=== PATIENT | male | born 1995 | race Caucasian/White ===

== ENCOUNTER 2016-12-28 12:29 | Inpatient (IN) | payer OTHER ==
[~2016-12-28] VITALS: Ht 165.1 cm; Wt 65.0 kg
[2016-12-28] MEDS ORDERED: LORAZEPAM 1 MG TAB PO ONE (13:00)
[2016-12-28 13:32] LABS: ABNORMAL IP MESSAGE 1; HEMATOCRIT 45.7 % (42.0-52.0); HEMOGLOBIN 16.5 g/dl (14.0-18.0); MEAN CORPUSCULAR HEMOGLOBIN 29.1 pg (29.0-33.0); MEAN CORPUSCULAR HGB CONC 36.1 g/dl (32.0-37.0); MEAN CORPUSCULAR VOLUME 80.6 fl (82.0-101.0); POSITIVE DIFF @See below; RED BLOOD COUNT 5.67 10^6/ul (4.70-6.10); RED CELL DISTRIBUTION WIDTH 12.3 % (11.5-14.5); WHITE BLOOD COUNT 7.8 10^3/ul (4.8-10.8)
[2016-12-28 13:39] LABS: PLATELET COUNT 6 10^3/UL (140-415)
[2016-12-28 13:43] LABS: ACETAMINOPHEN < 10.0 ug/ml (10.0-30.0); ALANINE AMINOTRANSFERASE 34 IU/L (13-69); ALBUMIN/GLOBULIN RATIO 1.61; ALKALINE PHOSPHATASE 51 IU/L (42-121); ANION GAP 18 (8-16); ASPARTATE AMINO TRANSFERASE 24 IU/L (15-46); BILIRUBIN,INDIRECT 1.7 mg/dl (0-1.1); BILIRUBIN,TOTAL 1.7 mg/dl (0.2-1.3); BLOOD UREA NITROGEN 19 mg/dl (7-20); CALCIUM 9.7 mg/dl (8.4-10.2); CARBON DIOXIDE 27 mmol/L (21-31); CHLORIDE 103 mmol/L (97-110); CREATININE 0.95 mg/dl (0.61-1.24); ETHANOL < 10.0 mg/dl; GLUCOSE 109 mg/dl (70-220); POTASSIUM 3.6 mmol/L (3.5-5.1); SALICYLATE < 1.0 mg/dl (5.0-30.0); SODIUM 144 mmol/L (135-144); TOTAL PROTEIN 8.1 g/dl (6.1-8.1)
[2016-12-28 14:05] LABS: ANISOCYTOSIS 1+ (0-0); BASOPHILS % (M) 1 % (0-2); MICROCYTOSIS 1+ (0-0); MONOCYTES % (M) 11 % (0-11); PLATELET ESTIMATE SIG DECREASED
--- NOTE | 2016-12-28 14:14 | ERD ---
ER Documentation Chief Complaint Chief Complaint BIBA FOR DEPRESSION AND METH USE HPI Patient is a 21-year-old male with thrombocytopenia and previous ITP who presents with depression. Patient was brought in by ambulance. He says "I am not feeling safe". He does admit to using methamphetamines this morning and said that another person was with him saying "you are going to go to God". He said that there was something in my brain telling me "something was wrong". He feels sad and depressed and has suicidal ideation. He does not have a plan however. He does not currently have a primary doctor or a psychiatric doctor. He has had no treatment as of yet. ROS All systems reviewed and are negative except as per history of present illness. PMhx/Soc History of Surgery: No (Bone marrow biopsy) Anesthesia Reaction: No Hx Neurological Disorder: No Hx Respiratory Disorders: No Hx Cardiac Disorders: No Hx Psychiatric Problems: Yes Hx Miscellaneous Medical Probl: No Hx Alcohol Use: Yes Hx Substance Use: Yes Hx Tobacco Use: Yes Smoking Status: Current every day smoker FmHx Family History: No diabetes Physical Exam Vitals Vital Signs Date Time Temp Pulse Resp B/P Pulse Ox O2 Delivery O2 Flow Rate FiO2 12/28/16 12:40 98.1 88 18 170/113 98 Physical Exam Const: Moderate distress Head: Atraumatic Eyes: Normal Conjunctiva ENT: Normal External Ears, Nose and Mouth. Neck: Full range of motion..~ No meningismus. Resp: Clear to auscultation bilaterally Cardio: Regular rate and rhythm, no murmurs Abd: Soft, non tender, non distended. Normal bowel sounds Skin: No petechiae or rashes Back: No midline or flank tenderness Ext: No cyanosis, or edema Neur: Awake and depressed Psych: Depressed with suicidal ideation without plan Result Diagram: 12/28/16 1300 12/28/16 1300 Results 24 hrs Laboratory Tests Test 12/28/16 13:00 White Blood Count 7.810^3/ul Red Blood Count 5.6710^6/ul Hemoglobin 16.5g/dl Hematocrit 45.7% Mean Corpuscular Volume 80.6fl Mean Corpuscular Hemoglobin 29.1pg Mean Corpuscular Hemoglobin Concent 36.1g/dl Red Cell Distribution Width 12.3% Platelet Count 610^3/UL Mean Platelet Volume fl Neutrophils % % Segmented Neutrophils % (Manual) 59% Band Neutrophils % (Manual) 3% Lymphocytes % % Lymphocytes % (Manual) 26% Monocytes % % Monocytes % (Manual) 11% Eosinophils % % Basophils % % Basophils % (Manual) 1% Nucleated Red Blood Cells % 0.0/100WBC Neutrophils # 10^3/ul Neutrophils # (Manual) 4.610^3/ul Band Neutrophils # 0.210^3/ul Absolute Lymphocytes (Manual) 2.010^3/ul Lymphocytes # 10^3/ul Monocytes # 10^3/ul Absolute Monocytes (Manual) 0.810^3/ul Eosinophils # 10^3/ul Basophils # 10^3/ul Basophils # (Manual) 0.010^3/ul Nucleated Red Blood Cells # 10^3/ul Platelet Estimate SIG DECREASED Platelet Morphology Comment @See below Anisocytosis 1+ Microcytosis 1+ Sodium Level 144mmol/L Potassium Level 3.6mmol/L Chloride Level 103mmol/L Carbon Dioxide Level 27mmol/L Anion Gap 18 Blood Urea Nitrogen 19mg/dl Creatinine 0.95mg/dl Glucose Level 109mg/dl Calcium Level 9.7mg/dl Total Bilirubin 1.7mg/dl Direct Bilirubin 0.00mg/dl Indirect Bilirubin 1.7mg/dl Aspartate Amino Transf (AST/SGOT) 24IU/L Alanine Aminotransferase (ALT/SGPT) 34IU/L Alkaline Phosphatase 51IU/L Total Protein 8.1g/dl Albumin 5.0g/dl Globulin 3.10g/dl Albumin/Globulin Ratio 1.61 Salicylates Level < 1.0mg/dl Acetaminophen Level < 10.0ug/ml Ethyl Alcohol Level < 10.0mg/dl Current Medications Medications (Trade) Dose Ordered Sig/Evette Route PRN Reason Start Time Stop Time Status Last Admin Dose Admin Lorazepam (Ativan) 1 mg ONCE ONCE PO 12/28/16 13:00 12/28/16 13:01 DC Procedures/MDM Smoking Cessation Therapy: Pt. was lectured for greater than 3 minutes on the health risks of continued smoking and the benefits of cessation. Patient is a 21-year-old male with a history of ITP who presents with depression and methamphetamine abuse. The patient unfortunately was found to have significantly low platelet count as well with a platelet level of 6. I believe he has acute thrombocytopenia likely ITP. The patient will not be medically clear for psychiatric transfer at this time. He was given Ativan for his symptoms. He will be admitted to the care of Dr. Kearney as he has [facility] insurance. I believe the patient can be admitted to a medical surgical bed. A psychiatry evaluation was ordered and I am awaiting a psychiatric evaluation at this time to give guidance on medications while admitted to the hospital. Urine drug screen is also pending at this time. Departure Diagnosis: Primary Impression: Thrombocytopenia Additional Impression: Depression Depression Type: unspecified Qualified Code: F32.9 - Depression, unspecified depression type Condition: AUREA Ibrahim MD Dec 28, 2016 14:14
[2016-12-28] MEDS ORDERED: METHYLPREDNISOLONE 125 MG INJ IV ONE ×2 (14:30→21:00)
[2016-12-28] MEDS ORDERED: ONDANSETRON 4 MG INJ IV PRN ×2 (15:00→16:30)
[2016-12-28] MEDS ORDERED: ACETAMINOPHEN 325 MG TAB PO PRN ×2 (15:00→16:30)
[2016-12-28 15:57] VITALS: TEMP 97.9
--- NOTE | 2016-12-28 16:05 | QN ---
Documentation Comment h and p done [id number]# BENJAMIN STOUT MD Dec 28, 2016 16:05
[2016-12-28] MEDS ORDERED: HYDROCODONE/APAP (5/325) TAB PO PRN (16:30)
[2016-12-28] MEDS ORDERED: DOCUSATE SODIUM 100 MG CAP PO PRN (16:30)
[2016-12-28] MEDS ORDERED: IBUPROFEN 600 MG TAB PO PRN (16:30)
[2016-12-28] MEDS ORDERED: NACL 0.9% 3 ML SYG IV SCH (16:30)
[2016-12-28] MEDS ORDERED: METOCLOPRAMIDE 10 MG INJ IV PRN (16:30)
[2016-12-28] MEDS ORDERED: LORAZEPAM 2 MG INJ IV PRN (16:30)
[2016-12-28] MEDS ORDERED: morphine 2 MG INJ IV PRN (16:30)
[2016-12-28 16:48] LABS: ADD UMIC YES; UR ASCORBIC ACID NEGATIVE (NEGATIVE); UR BILIRUBIN (Dip) NEGATIVE (NEGATIVE); UR BLOOD (Dip) NEGATIVE (NEGATIVE); UR CLARITY SLIGHTLY CLOUDY (CLEAR); UR COLOR YELLOW (YELLOW); UR GLUCOSE (Dip) NEGATIVE (NEGATIVE); UR KETONES (Dip) 1+ mg/dL (NEGATIVE); UR LEUKOCYTE ESTERASE (Dip) 1+ Leu/ul (NEGATIVE); UR MUCUS MANY /HPF (NONE SEEN); UR NITRITE (Dip) NEGATIVE (NEGATIVE); UR RBC 4 /HPF (0-5); UR SPECIFIC GRAVITY (Dip) 1.029 (1.003-1.030); UR SQUAMOUS EPITHELIAL CELL FEW /HPF (FEW); UR TOTAL PROTEIN (Dip) NEGATIVE (NEGATIVE); UR UROBILINOGEN (Dip) 1+ mg/dL (NEGATIVE)
--- NOTE | 2016-12-28 16:50 | CONS ---
Date/Time of Note Date/Time of Note DATE: 12/28/16 TIME: 16:41 Assessment/Plan Assessment/Plan Chief Complaint/Hosp Course THROMBOCYTOPENIA history of ITP CHECK SMEAR, LDH, RETIC, FRACTIONATED BILI OBTAIN OLD RECORD IF POS CHECK HIV START STEROIDS IV D/W PRIMARY MICROCYTOSIS CHECK IRON STUDIES depression methamphetamine abuse. Problems: Consultation Date/Type/Reason Admit Date/Time 12/28/16 Date of Consultation: Dec 28, 2016 Type of Consultation: hemeonc Reason for Consultation thrombocytopenia Referring Provider: KAM URENA MD Hx of Present Illness Patient is a 21-year-old male with thrombocytopenia and previous ITP who presents with depression. Patient was brought in by ambulance. He says "I am not feeling safe". He does admit to using methamphetamines this morning and said that another person was with him saying "you are going to go to God". He said that there was something in my brain telling me "something was wrong". He feels sad and depressed and has suicidal ideation. He does not have a plan however. He does not currently have a primary doctor or a psychiatric doctor. He has had no treatment as of yet. i was asked to provide hemeonc consult re thrombocytopenia ROS All systems reviewed and are negative except as per history of present illness. PMhx/Soc History of Surgery: No (Bone marrow biopsy) Anesthesia Reaction: No Hx Neurological Disorder: No Hx Respiratory Disorders: No Hx Cardiac Disorders: No Hx Psychiatric Problems: Yes Hx Miscellaneous Medical Probl: No Hx Alcohol Use: Yes Hx Substance Use: Yes Hx Tobacco Use: Yes Smoking Status: Current every day smoker FmHx Family History: No diabetes Social History Smoking Status: Current every day smoker Exam/Review of Systems Vital Signs Vitals Vital Signs Date Time Temp Pulse Resp B/P Pulse Ox O2 Delivery O2 Flow Rate FiO2 12/28/16 15:57 97.9 91 17 139/86 100 Room Air Exam Const: Moderate distress Head: Atraumatic Eyes: Normal Conjunctiva ENT: Normal External Ears, Nose and Mouth. Neck: Full range of motion..~ No meningismus. Resp: Clear to auscultation bilaterally Cardio: Regular rate and rhythm, no murmurs Abd: Soft, non tender, non distended. Normal bowel sounds Skin: No petechiae or rashes Back: No midline or flank tenderness Ext: No cyanosis, or edema Neur: Awake and depressed Psych: Depressed with suicidal ideation without plan Results Result Diagram: 12/28/16 1300 12/28/16 1300 Results 24 hrs Laboratory Tests Test 12/28/16 13:00 White Blood Count 7.8 Red Blood Count 5.67 Hemoglobin 16.5 Hematocrit 45.7 Mean Corpuscular Volume 80.6 L Mean Corpuscular Hemoglobin 29.1 Mean Corpuscular Hemoglobin Concent 36.1 Red Cell Distribution Width 12.3 Platelet Count 6 *L Mean Platelet Volume Neutrophils % Segmented Neutrophils % (Manual) 59 Band Neutrophils % (Manual) 3 Lymphocytes % Lymphocytes % (Manual) 26 Monocytes % Monocytes % (Manual) 11 Eosinophils % Basophils % Basophils % (Manual) 1 Nucleated Red Blood Cells % 0.0 Neutrophils # Neutrophils # (Manual) 4.6 Band Neutrophils # 0.2 Absolute Lymphocytes (Manual) 2.0 Lymphocytes # Monocytes # Absolute Monocytes (Manual) 0.8 Eosinophils # Basophils # Basophils # (Manual) 0.0 Nucleated Red Blood Cells # Platelet Estimate SIG DECREASED Platelet Morphology Comment @See below Anisocytosis 1+ Microcytosis 1+ Absolute Reticulocyte Count 0.058 Percent Reticulocyte Count 1.0 Sodium Level 144 Potassium Level 3.6 Chloride Level 103 Carbon Dioxide Level 27 Anion Gap 18 H Blood Urea Nitrogen 19 Creatinine 0.95 Glucose Level 109 Calcium Level 9.7 Total Bilirubin 1.7 H Direct Bilirubin 0.00 Indirect Bilirubin 1.7 H Aspartate Amino Transf (AST/SGOT) 24 Alanine Aminotransferase (ALT/SGPT) 34 Alkaline Phosphatase 51 Total Protein 8.1 Albumin 5.0 H Globulin 3.10 Albumin/Globulin Ratio 1.61 Salicylates Level < 1.0 L Acetaminophen Level < 10.0 L Ethyl Alcohol Level < 10.0 Medications Medications Current Medications Methylprednisolone Sodium Succinate 80 mg 80 mg TID ONCE IV ; Start 12/28/16 at 21:00; Stop 12/28/16 at 21:01 Sodium Chloride (NS) 1,000 ml @ 70 mls/hr [id number] IV ; Start 12/28/16 at 16:05 ; Status UNV Ondansetron HCl (Zofran Inj) 4 mg Q6H PRN IV NAUSEA AND/OR VOMITING; Start at 16:30; Status UNV Metoclopramide HCl (Reglan) 10 mg Q6H PRN IV NAUSEA AND/OR VOMITING; Start at 16:30; Status UNV Acetaminophen (Tylenol Tab) 650 mg Q6H PRN PO PAIN LEVEL 1-3 OR FEVER; Start 12/28/16 at 16:30; Status UNV Ibuprofen (Motrin) 600 mg Q6H PRN PO PAIN LEVEL 1-3; Start 12/28/16 at 16:30; Status UNV Acetaminophen/ Hydrocodone Bitart ([place] (5/325)) 1 tab Q6H PRN PO MODERATE PAIN LEVEL 4-6; Start 12/28/16 at 16:30; Status UNV Morphine Sulfate (morphine) 2 mg Q4H PRN IV SEVERE PAIN LEVEL 7-10; Start at 16:30; Status UNV Docusate Sodium (Colace) 100 mg Q12H PRN PO CONSTIPATION; Start 12/28/16 at 16 :30; Status UNV Famotidine (Pepcid Iv) 20 mg Q12 IV ; Start 12/28/16 at 21:00; Status UNV Miscellaneous Information (* Miscellaneous Pharmacy Order) Discontinue current oral sulfonylur... ONCE ONCE XX ; Start 12/28/16 at 16:30; Stop 12/28/16 at 16:31; Status UNV Diagnostic Test (Pha) (Accu-Chek) 1 XX ; Start 12/29/16 at 02:00; Status UNV Miscellaneous Information (* Miscellaneous Pharmacy Order) HYPOGLYCEMIA PROTOCOL w... ONCE ONCE XX ; Start 12/28/16 at 16:30; Stop 12/28/16 at 16:31 ; Status UNV Insulin Aspart (Novolog Insulin Pen) NOVOLOG *MILD* ALGORI... Q4 SC ; Start at 17:00; Status UNV Insulin Aspart (Novolog Insulin Pen) NOVOLOG *MODERATE* ALGORI... Q4 SC ; Start 12/28/16 at 17:00; Status UNV Miscellaneous Information (* Miscellaneous Pharmacy Order) Discontinue all previ... ONCE ONCE XX ; Start 12/28/16 at 16:30; Stop 12/28/16 at 16:31; Status UNV Lorazepam 1 mg 1 mg Q4 PRN IV agitation; Start 12/28/16 at 16:30; Status UNV Multivitamins/ Thiamine HCl/ Folic Acid/Sodium Chloride (Mvi Adult/ Vitamin B1/ Folic Acid/NS) 1,011.2 ml @ 125 mls/ hr DAILY@09 IVPB ; Start 12/29/16 at 09: 00; Status UNV SCAR FICSHER MD Dec 28, 2016 16:50
[2016-12-28 16:53] VITALS: BP 132/61; RESP 18
[2016-12-28 16:58] VITALS: Ht 165.1 cm; Wt 65.0 kg
[2016-12-28 16:59] LABS: BARBITURATES Negative (NEGATIVE); BENZODIAZEPINES Negative (NEGATIVE); CANNABINOIDS Positive (NEGATIVE); COCAINE Negative (NEGATIVE); OPIATES Negative (NEGATIVE)
[2016-12-28] MEDS ORDERED: GLUCOSE GEL 15 GRAM TUBE PO PRN ×2 (17:00)
[2016-12-28] MEDS ORDERED: INSULIN ASPART [NOVOLOG] 3 ML PEN SC SCH ×5 (17:00→21:00)
[2016-12-28] MEDS ORDERED: DEXTROSE 50% 50 ML SYRINGE IV PRN ×2 (17:00)
[2016-12-28] MEDS ORDERED: GLUCAGON 1 MG INJ IM PRN (17:00)
[2016-12-28] MEDS ORDERED: GLUCOSE GEL 15 GRAM TUBE BUCCAL PRN (17:00)
--- NOTE | 2016-12-28 17:23 | HP ---
DATE OF ADMISSION: 12/28/2016 REASON FOR ADMISSION: Low platelet count. HISTORY OF PRESENT ILLNESS: This is a 21-year-old male with a past medical history of ITP since a c hild, presented to the emergency department after he was brought in the ambulance as he says "I'm n ot feeling safe". According to the patient, he had ITP when he was a child. He had a bone marrow b iopsy that was performed. Since that time, he had been intermittently in and out of the hospitals. He used to stay in the hospital for a few days and then used to get discharged, but he never took a ny complete treatment. According to the patient, his last hospitalization for ITP was 2 days ago wh ere he presented with nose bleeding. Patient said that he has been depressed for quite some time an d as he is homeless and he does not have a job he has been using methamphetamines and marijuana. La st night he used methamphetamine and he was not feeling safe and he said that another person was tel ling him you are going to God and that there was something in my brain telling him something was wro ng and was brought into the ER. According to the sister, who is present at the bedside, the patient was living with her before 3 months ago, but since he has not been earning, she is not able to keep him at home. She has told him to go to either his father or his mother for her, but he would not g o. The patient has been having some intermittent gum bleeds. Denies any nosebleeds. Denies any he maturia, any hematemesis, any melena, any bright red blood per rectum. Does not take any blood thin ners. On arrival to ED, vital signs were temperature 98.1, heart rate 88, respirations 18, blood pr essure is 171/113, saturating 98%, platelet count was 6 and BMP showed BUN of 19, creatinine 0.95, t otal bilirubin of 1.7, and ETOH level was less than 10. Patient was given Ativan, Solu-Medrol 125, Zofran, acetaminophen, and was admitted for further management. PAST MEDICAL HISTORY: ITP. ALLERGIES: None. PAST SURGICAL HISTORY: None. SOCIAL HISTORY: He is a smoker and smokes 1 to 2 cigarettes per day. Also, drinks alcohol. Also, uses marijuana and amphetamine. Last use was last night. Currently, he is homeless, is unemployed, used to live with his sister before. FAMILY HISTORY: No history of any blood disorder in the family. REVIEW OF SYSTEMS: Patient generally denies any chest pain, any shortness of breath, orthopnea, PND , any lower extremity edema. Denies any abdominal pain, nausea, vomiting, diarrhea. Denies any hem atemesis, any melena, any bright blood per rectum. The patient is apparently depressed with suicida l ideation without plan. PHYSICAL EXAMINATION: VITAL SIGNS: Temperature 98.1, heart rate 88, respirations 18, blood pressure 170/113, saturating 9 8%. GENERAL: Patient is awake, alert, oriented, does not appear to be in any acute distress. HEENT: Pupils equal, round, reactive to light. NECK: Supple. No JVD. HEART: Regular rate and rhythm. No murmur, rub or gallop. LUNGS: Clear to auscultate bilaterally. ABDOMEN: Soft, nontender, nondistended, positive normoactive bowel sounds. EXTREMITIES: No clubbing, cyanosis or edema. NEUROLOGIC: Grossly nonfocal. Patient has some hallucinations. SKIN: The patient has multiple bruises present on the back and also on the bilateral lower extremit ies. LABORATORY DATA: BMP within normal limit. BUN of 19, creatinine 0.9, total bilirubin 1.7, indirect 1.7. LFTs within normal limit white count of 7.8, hemoglobin 16.5, platelet count of 6. ETOH leve l less than 10. IMPRESSION: This is a 21-year-old male presenting with: 1. Severe thrombocytopenia with a history of idiopathic thrombocytopenic purpura. The patient has history of idiopathic thrombocytopenic purpura, but has been noncompliant in the past, does not take any steroids and only he goes from hospital to hospital for his treatment. Is never followed by an y primary doctor. 2. Depression with suicidal ideation, but no plan. 3. Marijuana and amphetamine use with hallucinations. 4. Homelessness. 5. Smoker. PLAN: At this period of time, the patient will be admitted to med/surg unit. I spoke to Dr. Klarissa holloway, we will get stat peripheral smear, lactate count, LDH, haptoglobin, and start the patient on IV Solu-Medrol. The patient will also start Pepcid and some insulin. We will also call tele psych co nsultation and monitor the patient for withdrawal. The rest of the treatment will depend on the pat ient hospitalization course. Dictated By: BENJAMIN BOWENS Conf#: [id number] DID#: [id number]
[2016-12-28] MEDS: SOD CHLORIDE 0.9% 1,000 ML IV SCH (17:58)
[2016-12-28] MEDS: INSULIN ASPART [NOVOLOG] 3 ML PEN SC SCH ×2 (19:02→20:45)
[2016-12-28 19:35] VITALS: BP 128/60; RESP 20
[2016-12-29 01:50] VITALS: BP 104/52; RESP 18
[2016-12-29] MEDS: ACCU-CHEK XX SCH (02:00)
[2016-12-29 05:41] LABS: ABNORMAL IP MESSAGE 1; BASOPHILS % 0.2 % (0.0-2.0); EOSINOPHILS % 0.2 % (0.0-7.0); HEMATOCRIT 44.4 % (42.0-52.0); HEMOGLOBIN 15.6 g/dl (14.0-18.0); LYMPHOCYTES # 1.2 10^3/ul (0.8-2.9); LYMPHOCYTES % 19.3 % (15.0-51.0); MEAN CORPUSCULAR HEMOGLOBIN 28.9 pg (29.0-33.0); MEAN CORPUSCULAR HGB CONC 35.1 g/dl (32.0-37.0); MEAN CORPUSCULAR VOLUME 82.2 fl (82.0-101.0); MONOCYTE # 0.2 10^3/ul (0.3-0.9); NEUTROPHIL # 4.7 10^3/ul (1.6-7.5); NEUTROPHILS % 77.1 % (39.0-77.0); POSITIVE DIFF @See below; RED CELL DISTRIBUTION WIDTH 12.1 % (11.5-14.5); WHITE BLOOD COUNT 6.1 10^3/ul (4.8-10.8)
[2016-12-29 05:48] LABS: PLATELET COUNT 8 10^3/UL (140-415)
[2016-12-29 06:11] LABS: ALBUMIN 4.1 g/dl (3.3-4.9); ALBUMIN/GLOBULIN RATIO 1.28; BILIRUBIN,INDIRECT 1.2 mg/dl (0-1.1); BILIRUBIN,TOTAL 1.2 mg/dl (0.2-1.3); CALCIUM 9.7 mg/dl (8.4-10.2); CREATININE 0.78 mg/dl (0.61-1.24); PHOSPHORUS 4.5 mg/dl (2.5-4.9); POTASSIUM 4.2 mmol/L (3.5-5.1); TOTAL PROTEIN 7.3 g/dl (6.1-8.1)
[2016-12-29] MEDS: SOD CHLORIDE 0.9% 1,000 ML IV SCH ×2 (07:00→20:41)
[2016-12-29 07:19] VITALS: BP 124/69; RESP 18
[2016-12-29] MEDS: INSULIN ASPART [NOVOLOG] 3 ML PEN SC SCH ×4 (07:50→21:30)
[2016-12-29] MEDS: FAMOTIDINE 20 MG TAB PO SCH (09:06)
[2016-12-29] MEDS: FOLIC ACID 1 MG TAB PO SCH (09:06)
[2016-12-29] MEDS: MULTIVITAMINS 10 ML, THIAMINE 100 MG in SOD CHLORIDE 0.9% 1,000 ML IVPB SCH (09:37)
--- NOTE | 2016-12-29 13:42 | PN ---
SABRINA LACKEY 12/29/16 1342: Date/Time of Note Date/Time of Note DATE: 12/29/16 TIME: 13:41 Assessment/Plan VTE Prophylaxis VTE Prophylaxis Intervention: SCD's Lines/Catheters IV [facility] Peripheral IV Urinary Cath still in place: No Assessment/Plan Chief Complaint/Hosp Course 1. Severe thrombocytopenia with a history of idiopathic thrombocytopenic purpura. The patient has history of idiopathic thrombocytopenic purpura, but has been noncompliant in the past, does not take any steroids and only he goes from hospital to hospital for his treatment. Is never followed by any primary doctor. 2. Depression with suicidal ideation, but no plan. 3. Marijuana and amphetamine use with hallucinations. 4. Homelessness. 5. Smoker. Problems: Assessment/Plan 1. continue IV fluids with vitamins 2. Antidepressants 3. continue sitter Subjective 24 Hr Interval Summary Constitutional: improved, no complaints Exam/Review of Systems Vital Signs Vitals Vital Signs Date Time Temp Pulse Resp B/P Pulse Ox O2 Delivery O2 Flow Rate FiO2 12/29/16 07:19 98.2 71 18 124/69 98 12/28/16 15:57 Room Air Intake and Output 12/28/16 12/28/16 12/29/16 14:59 22:59 06:59 Intake Total 800 ml 1480 ml Output Total 600 ml Balance 800 ml 880 ml Exam Constitutional: alert, oriented Respiratory: clear to auscultation Cardiovascular: regular rate and rhythm Gastrointestinal: soft Results Result Diagram: 12/29/16 0433 12/29/16 0435 Results 24 hrs Laboratory Tests Test 12/28/16 16:10 12/28/16 18:47 12/28/16 20:44 12/29/16 04:33 Urine Color YELLOW Urine Clarity SLIGHTLY CLOUDY A Urine pH 5.0 Urine Specific [place] 1.029 Urine Ketones 1+ H Urine Nitrite NEGATIVE Urine Bilirubin NEGATIVE Urine Urobilinogen 1+ H Urine Leukocyte Esterase 1+ H Urine Microscopic RBC 4 Urine Microscopic WBC 13 H Urine Squamous Epithelial Cells FEW Urine Mucus MANY A Urine Hemoglobin NEGATIVE Urine Glucose NEGATIVE Urine Total Protein NEGATIVE Urine Opiates Screen Negative Urine Barbiturates Negative Urine Amphetamines Screen POSITIVE Urine Benzodiazepines Screen Negative Urine Cocaine Screen Negative Urine Cannabinoids Positive Bedside Glucose 144 169 White Blood Count 6.1 # Red Blood Count 5.40 Hemoglobin 15.6 Hematocrit 44.4 Mean Corpuscular Volume 82.2 Mean Corpuscular Hemoglobin 28.9 L Mean Corpuscular Hemoglobin Concent 35.1 Red Cell Distribution Width 12.1 Platelet Count 8 #*L Mean Platelet Volume Neutrophils % 77.1 H Lymphocytes % 19.3 Monocytes % 3.0 Eosinophils % 0.2 Basophils % 0.2 Nucleated Red Blood Cells % 0.0 Neutrophils # 4.7 Lymphocytes # 1.2 Monocytes # 0.2 L Eosinophils # 0.0 Basophils # 0.0 Nucleated Red Blood Cells # 0.0 Test 12/29/16 04:35 12/29/16 08:44 12/29/16 12:50 Sodium Level 145 H Potassium Level 4.2 Chloride Level 109 Carbon Dioxide Level 27 Anion Gap 13 Blood Urea Nitrogen 16 Creatinine 0.78 Glucose Level 133 Calcium Level 9.7 Phosphorus Level 4.5 Magnesium Level 2.0 Total Bilirubin 1.2 Direct Bilirubin 0.00 Indirect Bilirubin 1.2 H Aspartate Amino Transf (AST/SGOT) 18 Alanine Aminotransferase (ALT/SGPT) 33 Alkaline Phosphatase 53 Total Protein 7.3 Albumin 4.1 Globulin 3.20 Albumin/Globulin Ratio 1.28 Bedside Glucose 121 106 Medications Medications Current Medications Sodium Chloride (NS) 1,000 ml @ 70 mls/hr [id number] IV Last administered on t 07:00; Admin Dose 70 MLS/HR; Start 12/28/16 at 16:05 Ondansetron HCl (Zofran Inj) 4 mg Q6H PRN IV NAUSEA AND/OR VOMITING; Start at 16:30 Metoclopramide HCl (Reglan) 10 mg Q6H PRN IV NAUSEA AND/OR VOMITING; Start at 16:30 Acetaminophen (Tylenol Tab) 650 mg Q6H PRN PO PAIN LEVEL 1-3 OR FEVER; Start 12/28/16 at 16:30 Ibuprofen (Motrin) 600 mg Q6H PRN PO PAIN LEVEL 1-3; Start 12/28/16 at 16:30 Acetaminophen/ Hydrocodone Bitart ([place] (5/325)) 1 tab Q6H PRN PO MODERATE PAIN LEVEL 4-6; Start 12/28/16 at 16:30 Morphine Sulfate (morphine) 2 mg Q4H PRN IV SEVERE PAIN LEVEL 7-10; Start at 16:30 Docusate Sodium (Colace) 100 mg Q12H PRN PO CONSTIPATION; Start 12/28/16 at 16 :30 Famotidine (Pepcid) 20 mg DAILY PO Last administered on 12/29/16 09:06; Admin Dose 20 MG; Start 12/29/16 at 09:00 Diagnostic Test (Pha) (Accu-Chek) 1 ea 02 XX ; Start 12/29/16 at 02:00 Lorazepam 1 mg 1 mg Q4 PRN IV agitation; Start 12/28/16 at 16:30 Multivitamins/ Thiamine HCl/ Sodium Chloride (Mvi Adult/ Vitamin B1/NS) 1,011 ml @ 125 mls/hr DAILY@09 IVPB Last administered on 12/29/16 09:37; Admin Dose 125 MLS/HR; Start 12/29/16 at 09:00 Miscellaneous Information 1 ea NOTE XX ; Start 12/28/16 at 17:00 Glucose (Glutose) 15 gm Q15M PRN PO DECREASED GLUCOSE; Start 12/28/16 at 17:00 Glucose (Glutose) 22.5 gm Q15M PRN PO DECREASED GLUCOSE; Start 12/28/16 at 17: 00 Dextrose (D50w Syringe) 25 ml Q15M PRN IV DECREASED GLUCOSE; Start 12/28/16 at 17:00 Dextrose (D50w Syringe) 50 ml Q15M PRN IV DECREASED GLUCOSE; Start 12/28/16 at 17:00 Glucagon (Glucagen) 1 mg Q15M PRN IM DECREASED GLUCOSE; Start 12/28/16 at 17: 00 Glucose (Glutose) 15 gm Q15M PRN BUCCAL DECREASED GLUCOSE; Start 12/28/16 at 17:00 Folic Acid (Folic Acid) 1 mg DAILY PO Last administered on 12/29/16 09:06; Admin Dose 1 MG; Start 12/29/16 at 09:00 Influenza Virus Vaccine (Fluzone) 0.5 ml ONCE ONCE IM* ; Start 12/29/16 at 21: 00; Stop 12/29/16 at 21:01 BENJAMIN STOUT MD 12/29/16 5739: Assessment/Plan Assessment/Plan Chief Complaint/Hosp Course C/W steroids per Heme, plt count still 8 Telepscy Problems: Exam/Review of Systems Results Result Diagram: 12/29/16 0433 12/29/16 0435 SABRINA RONDON Dec 29, 2016 13:42 BENJAMIN STOUT MD Dec 29, 2016 17:49
[2016-12-29 14:02] VITALS: BP 130/70; RESP 18
--- NOTE | 2016-12-29 18:47 | CONS ---
Date/Time of Note Date/Time of Note DATE: 12/29/16 TIME: 18:47 Assessment/Plan Assessment/Plan Chief Complaint/Hosp Course ITP- WITH SEVERE THROMBOCYTOPENIA history of ITP SMEAR- C/W ITP CONT TO MONITOR LDH, RETIC, FRACTIONATED BILI OLD RECORD -P CONT IV STEROIDS D/W PRIMARY MICROCYTOSIS IRON STUDIES- NOTED depression methamphetamine abuse. Problems: Consultation Date/Type/Reason Admit Date/Time Dec 28, 2016 at 15:01 Initial Consult Date 12/28/16 [facility] Referring Provider: KAM URENA MD 24 HR Interval Summary Free Text/Dictation ALL NOTED NO BLEEDING ON IV STEROIDS Exam/Review of Systems Vital Signs Vitals Vital Signs Date Time Temp Pulse Resp B/P Pulse Ox O2 Delivery O2 Flow Rate FiO2 12/29/16 14:02 98.0 76 18 130/70 96 12/28/16 15:57 Room Air Intake and Output 12/28/16 12/28/16 12/29/16 15:00 23:00 07:00 Intake Total 800 ml 1480 ml Output Total 600 ml Balance 800 ml 880 ml Exam Const: NAD Head: Atraumatic Eyes: Normal Conjunctiva ENT: Normal External Ears, Nose and Mouth. Neck: Full range of motion..~ No meningismus. Resp: Clear to auscultation bilaterally Cardio: Regular rate and rhythm, no murmurs Abd: Soft, non tender, non distended. Normal bowel sounds Skin: No petechiae or rashes Back: No midline or flank tenderness Ext: No cyanosis, or edema Neur: Awake and depressed Psych: Depressed with suicidal ideation without plan Results Result Diagram: 12/29/16 0433 12/29/16 0435 Results 24 hrs Laboratory Tests Test 12/28/16 20:44 12/29/16 04:33 12/29/16 04:35 12/29/16 08:44 Bedside Glucose 169 121 White Blood Count 6.1 # Red Blood Count 5.40 Hemoglobin 15.6 Hematocrit 44.4 Mean Corpuscular Volume 82.2 Mean Corpuscular Hemoglobin 28.9 L Mean Corpuscular Hemoglobin Concent 35.1 Red Cell Distribution Width 12.1 Platelet Count 8 #*L Mean Platelet Volume Neutrophils % 77.1 H Lymphocytes % 19.3 Monocytes % 3.0 Eosinophils % 0.2 Basophils % 0.2 Nucleated Red Blood Cells % 0.0 Neutrophils # 4.7 Lymphocytes # 1.2 Monocytes # 0.2 L Eosinophils # 0.0 Basophils # 0.0 Nucleated Red Blood Cells # 0.0 Sodium Level 145 H Potassium Level 4.2 Chloride Level 109 Carbon Dioxide Level 27 Anion Gap 13 Blood Urea Nitrogen 16 Creatinine 0.78 Glucose Level 133 Calcium Level 9.7 Phosphorus Level 4.5 Magnesium Level 2.0 Total Bilirubin 1.2 Direct Bilirubin 0.00 Indirect Bilirubin 1.2 H Aspartate Amino Transf (AST/SGOT) 18 Alanine Aminotransferase (ALT/SGPT) 33 Alkaline Phosphatase 53 Total Protein 7.3 Albumin 4.1 Globulin 3.20 Albumin/Globulin Ratio 1.28 Test 12/29/16 12:50 12/29/16 17:37 Bedside Glucose 106 130 Medications Medications Current Medications Sodium Chloride (NS) 1,000 ml @ 70 mls/hr [id number] IV Last administered on 07:00; Admin Dose 70 MLS/HR; Start 12/28/16 at 16:05 Ondansetron HCl (Zofran Inj) 4 mg Q6H PRN IV NAUSEA AND/OR VOMITING; Start at 16:30 Metoclopramide HCl (Reglan) 10 mg Q6H PRN IV NAUSEA AND/OR VOMITING; Start at 16:30 Acetaminophen (Tylenol Tab) 650 mg Q6H PRN PO PAIN LEVEL 1-3 OR FEVER; Start 12/28/16 at 16:30 Ibuprofen (Motrin) 600 mg Q6H PRN PO PAIN LEVEL 1-3; Start 12/28/16 at 16:30 Acetaminophen/ Hydrocodone Bitart ([place] (5/325)) 1 tab Q6H PRN PO MODERATE PAIN LEVEL 4-6; Start 12/28/16 at 16:30 Morphine Sulfate (morphine) 2 mg Q4H PRN IV SEVERE PAIN LEVEL 7-10; Start at 16:30 Docusate Sodium (Colace) 100 mg Q12H PRN PO CONSTIPATION; Start 12/28/16 at 16 :30 Famotidine (Pepcid) 20 mg DAILY PO Last administered on 12/29/16 09:06; Admin Dose 20 MG; Start 12/29/16 at 09:00 Diagnostic Test (Pha) (Accu-Chek) 1 ea 02 XX ; Start 12/29/16 at 02:00 Lorazepam 1 mg 1 mg Q4 PRN IV agitation; Start 12/28/16 at 16:30 Multivitamins/ Thiamine HCl/ Sodium Chloride (Mvi Adult/ Vitamin B1/NS) 1,011 ml @ 125 mls/hr DAILY@09 IVPB Last administered on 12/29/16 09:37; Admin Dose 125 MLS/HR; Start 12/29/16 at 09:00 Miscellaneous Information 1 ea NOTE XX ; Start 12/28/16 at 17:00 Glucose (Glutose) 15 gm Q15M PRN PO DECREASED GLUCOSE; Start 12/28/16 at 17:00 Glucose (Glutose) 22.5 gm Q15M PRN PO DECREASED GLUCOSE; Start 12/28/16 at 17: 00 Dextrose (D50w Syringe) 25 ml Q15M PRN IV DECREASED GLUCOSE; Start 12/28/16 at 17:00 Dextrose (D50w Syringe) 50 ml Q15M PRN IV DECREASED GLUCOSE; Start 12/28/16 at 17:00 Glucagon (Glucagen) 1 mg Q15M PRN IM DECREASED GLUCOSE; Start 12/28/16 at 17: 00 Glucose (Glutose) 15 gm Q15M PRN BUCCAL DECREASED GLUCOSE; Start 12/28/16 at 17:00 Folic Acid (Folic Acid) 1 mg DAILY PO Last administered on 12/29/16 09:06; Admin Dose 1 MG; Start 12/29/16 at 09:00 Influenza Virus Vaccine (Fluzone) 0.5 ml ONCE ONCE IM* ; Start 12/29/16 at 21: 00; Stop 12/29/16 at 21:01 SCAR FISCHER MD Dec 29, 2016 18:47
[2016-12-29 19:25] VITALS: BP 110/55; RESP 18
[2016-12-29] MEDS ORDERED: INFLUENZA VIRUS VACCINE 0.5 ML SYG IM* ONE (21:00)
[2016-12-30 02:00] VITALS: BP 118/62; RESP 20
[2016-12-30] MEDS: ACCU-CHEK XX SCH (02:00)
[2016-12-30 05:21] LABS: ABNORMAL IP MESSAGE 1; BASOPHIL # 0.1 10^3/ul (0.0-0.1); BASOPHILS % 1.2 % (0.0-2.0); EOSINOPHILS # 0.2 10^3/ul (0.0-0.5); EOSINOPHILS % 2.4 % (0.0-7.0); HEMOGLOBIN 14.7 g/dl (14.0-18.0); LYMPHOCYTES # 2.6 10^3/ul (0.8-2.9); LYMPHOCYTES % 39.8 % (15.0-51.0); MEAN CORPUSCULAR HEMOGLOBIN 28.9 pg (29.0-33.0); MEAN CORPUSCULAR VOLUME 82.7 fl (82.0-101.0); MONOCYTE # 0.6 10^3/ul (0.3-0.9); MONOCYTES % 8.9 % (0.0-11.0); NEUTROPHIL # 3.1 10^3/ul (1.6-7.5); NEUTROPHILS % 47.4 % (39.0-77.0); POSITIVE DIFF @See below; RED BLOOD COUNT 5.08 10^6/ul (4.70-6.10); RED CELL DISTRIBUTION WIDTH 12.5 % (11.5-14.5); WHITE BLOOD COUNT 6.6 10^3/ul (4.8-10.8)
[2016-12-30] MEDS: SOD CHLORIDE 0.9% 1,000 ML IV SCH (06:22)
[2016-12-30 06:38] LABS: CALCIUM 8.8 mg/dl (8.4-10.2); CREATININE 0.86 mg/dl (0.61-1.24)
[2016-12-30 07:02] LABS: PLATELET COUNT 3 10^3/UL (140-415)
[2016-12-30 07:40] VITALS: BP 102/56; RESP 18
[2016-12-30] MEDS: FAMOTIDINE 20 MG TAB PO SCH (08:30)
[2016-12-30] MEDS: FOLIC ACID 1 MG TAB PO SCH (08:30)
[2016-12-30] MEDS: INSULIN ASPART [NOVOLOG] 3 ML PEN SC SCH ×4 (08:55→21:00)
[2016-12-30] MEDS: MULTIVITAMINS 10 ML, THIAMINE 100 MG in SOD CHLORIDE 0.9% 1,000 ML IVPB SCH (09:10)
[2016-12-30] MEDS ORDERED: DIPHENHYDRAMINE 50 MG INJ IV ONE (10:00)
[2016-12-30] MEDS ORDERED: ACETAMINOPHEN 325 MG TAB PO ONE (10:00)
--- NOTE | 2016-12-30 12:29 | PN ---
Date/Time of Note Date/Time of Note DATE: 12/30/16 TIME: 12:28 Assessment/Plan VTE Prophylaxis VTE Prophylaxis Intervention: ambulation Lines/Catheters IV [facility]from [facility] Peripheral IV Urinary Cath still in place: No Assessment/Plan Chief Complaint/Hosp Course 1. Severe thrombocytopenia with a history of idiopathic thrombocytopenic purpura. The patient has history of idiopathic thrombocytopenic purpura, but has been noncompliant in the past, does not take any steroids and only he goes from hospital to hospital for his treatment. Is never followed by any primary doctor. 2. Depression with suicidal ideation, but no plan. 3. Marijuana and amphetamine use with hallucinations. 4. Homelessness. 5. Smoker. Problems: Assessment/Plan 1. Nicotine patch 2. marinol to decreased cravings 3. continue current treatment 4. Start on steroids Subjective 24 Hr Interval Summary Free Text/Dictation craving drugs Exam/Review of Systems Vital Signs Vitals Vital Signs Date Time Temp Pulse Resp B/P Pulse Ox O2 Delivery O2 Flow Rate FiO2 12/30/16 07:40 98.0 67 18 102/56 97 12/28/16 15:57 Room Air Intake and Output 12/29/16 12/29/16 12/30/16 15:00 23:00 07:00 Intake Total 140 ml 2810 ml 1760 ml Output Total 1400 ml 1200 ml Balance 140 ml 1410 ml 560 ml Exam Constitutional: alert, oriented Neck: supple Respiratory: clear to auscultation Cardiovascular: regular rate and rhythm Results Result Diagram: 12/30/16 0440 12/30/16 0440 Results 24 hrs Laboratory Tests Test 12/29/16 12:50 12/29/16 17:37 12/29/16 21:59 12/30/16 04:40 Bedside Glucose 106 130 99 White Blood Count 6.6 Red Blood Count 5.08 Hemoglobin 14.7 Hematocrit 42.0 Mean Corpuscular Volume 82.7 Mean Corpuscular Hemoglobin 28.9 L Mean Corpuscular Hemoglobin Concent 35.0 Red Cell Distribution Width 12.5 Platelet Count 3 #*L Mean Platelet Volume Neutrophils % 47.4 Lymphocytes % 39.8 Monocytes % 8.9 Eosinophils % 2.4 Basophils % 1.2 Nucleated Red Blood Cells % 0.0 Neutrophils # 3.1 Lymphocytes # 2.6 Monocytes # 0.6 Eosinophils # 0.2 Basophils # 0.1 Nucleated Red Blood Cells # 0.0 Sodium Level 145 H Potassium Level 4.0 Chloride Level 110 Carbon Dioxide Level 23 Anion Gap 16 Blood Urea Nitrogen 15 Creatinine 0.86 Glucose Level 87 # Hemoglobin A1c 4.3 Calcium Level 8.8 Test 12/30/16 08:55 Bedside Glucose 92 Medications Medications Current Medications Sodium Chloride (NS) 1,000 ml @ 70 mls/hr [id number] IV Last administered on 06:22; Admin Dose 70 MLS/HR; Start 12/28/16 at 16:05 Ondansetron HCl (Zofran Inj) 4 mg Q6H PRN IV NAUSEA AND/OR VOMITING; Start at 16:30 Metoclopramide HCl (Reglan) 10 mg Q6H PRN IV NAUSEA AND/OR VOMITING; Start at 16:30 Acetaminophen (Tylenol Tab) 650 mg Q6H PRN PO PAIN LEVEL 1-3 OR FEVER; Start 12/28/16 at 16:30 Ibuprofen (Motrin) 600 mg Q6H PRN PO PAIN LEVEL 1-3; Start 12/28/16 at 16:30 Acetaminophen/ Hydrocodone Bitart ([place] (5/325)) 1 tab Q6H PRN PO MODERATE PAIN LEVEL 4-6; Start 12/28/16 at 16:30 Morphine Sulfate (morphine) 2 mg Q4H PRN IV SEVERE PAIN LEVEL 7-10; Start at 16:30 Docusate Sodium (Colace) 100 mg Q12H PRN PO CONSTIPATION; Start 12/28/16 at 16 :30 Famotidine (Pepcid) 20 mg DAILY PO Last administered on 12/30/16 08:30; Admin Dose 20 MG; Start 12/29/16 at 09:00 Diagnostic Test (Pha) (Accu-Chek) 1 ea 02 XX ; Start 12/29/16 at 02:00 Lorazepam 1 mg 1 mg Q4 PRN IV agitation; Start 12/28/16 at 16:30 Multivitamins/ Thiamine HCl/ Sodium Chloride (Mvi Adult/ Vitamin B1/NS) 1,011 ml @ 125 mls/hr DAILY@09 IVPB Last administered on 12/30/16 09:10; Admin Dose 125 MLS/HR; Start 12/29/16 at 09:00 Miscellaneous Information 1 ea NOTE XX ; Start 12/28/16 at 17:00 Glucose (Glutose) 15 gm Q15M PRN PO DECREASED GLUCOSE; Start 12/28/16 at 17:00 Glucose (Glutose) 22.5 gm Q15M PRN PO DECREASED GLUCOSE; Start 12/28/16 at 17: 00 Dextrose (D50w Syringe) 25 ml Q15M PRN IV DECREASED GLUCOSE; Start 12/28/16 at 17:00 Dextrose (D50w Syringe) 50 ml Q15M PRN IV DECREASED GLUCOSE; Start 12/28/16 at 17:00 Glucagon (Glucagen) 1 mg Q15M PRN IM DECREASED GLUCOSE; Start 12/28/16 at 17: 00 Glucose (Glutose) 15 gm Q15M PRN BUCCAL DECREASED GLUCOSE; Start 12/28/16 at 17:00 Folic Acid (Folic Acid) 1 mg DAILY PO Last administered on 12/30/16t 08:30; Admin Dose 1 MG; Start 12/29/16 at 09:00 SABRINA RONDON Dec 30, 2016 12:29
[2016-12-30] MEDS ORDERED: predniSONE 20 MG TAB PO SCH (13:00)
[2016-12-30] MEDS: DRONABINOL 2.5 MG CAP PO SCH (13:33)
[2016-12-30] MEDS: NICOTINE (21 MG/24 HR) PATCH TRANSDERM SCH (13:34)
[2016-12-30] MEDS ORDERED: FUROSEMIDE 20 MG INJ IV SCH (14:30)
[2016-12-30 14:32] VITALS: BP 111/57; RESP 18
[2016-12-30 20:39] VITALS: BP 132/71; RESP 18
[2016-12-30] MEDS: METHYLPREDNISOLONE 125 MG INJ IV SCH (21:16)
--- NOTE | 2016-12-30 21:40 | CONS ---
Date/Time of Note Date/Time of Note DATE: 12/30/16 TIME: 21:38 Assessment/Plan Assessment/Plan Chief Complaint/Hosp Course ITP- WITH SEVERE THROMBOCYTOPENIA history of ITP SMEAR- C/W ITP CONT TO MONITOR LDH, RETIC, FRACTIONATED BILI OLD RECORD -P CONT IV STEROIDS D/W PRIMARY MICROCYTOSIS IRON STUDIES- NOTED depression methamphetamine abuse. Problems: Consultation Date/Type/Reason Admit Date/Time Dec 28, 2016 at 15:01 Initial Consult Date 12/28/16 [facility] Referring Provider: KAM URENA MD 24 HR Interval Summary Free Text/Dictation ALL NOTED PLATELET COUNT - STILL VERY LOW NO BLEEDING Exam/Review of Systems Vital Signs Vitals Vital Signs Date Time Temp Pulse Resp B/P Pulse Ox O2 Delivery O2 Flow Rate FiO2 12/30/16 20:39 98.4 71 18 132/71 98 12/28/16 15:57 Room Air Intake and Output 12/29/16 12/29/16 12/30/16 14:59 22:59 06:59 Intake Total 140 ml 2810 ml 1760 ml Output Total 1400 ml 1200 ml Balance 140 ml 1410 ml 560 ml Exam Const: NAD Head: Atraumatic Eyes: Normal Conjunctiva ENT: Normal External Ears, Nose and Mouth. Neck: Full range of motion..~ No meningismus. Resp: Clear to auscultation bilaterally Cardio: Regular rate and rhythm, no murmurs Abd: Soft, non tender, non distended. Normal bowel sounds Skin: No petechiae or rashes Back: No midline or flank tenderness Ext: No cyanosis, or edema Neur: Awake and depressed Psych: Depressed with suicidal ideation without plan Results Result Diagram: 12/30/160 12/30/16 044 Results 24 hrs Laboratory Tests Test 12/29/16 21:59 12/30/16 04:40 12/30/16 08:55 12/30/16 12:46 Bedside Glucose 99 92 77 White Blood Count 6.6 Red Blood Count 5.08 Hemoglobin 14.7 Hematocrit 42.0 Mean Corpuscular Volume 82.7 Mean Corpuscular Hemoglobin 28.9 L Mean Corpuscular Hemoglobin Concent 35.0 Red Cell Distribution Width 12.5 Platelet Count 3 #*L Mean Platelet Volume Neutrophils % 47.4 Lymphocytes % 39.8 Monocytes % 8.9 Eosinophils % 2.4 Basophils % 1.2 Nucleated Red Blood Cells % 0.0 Neutrophils # 3.1 Lymphocytes # 2.6 Monocytes # 0.6 Eosinophils # 0.2 Basophils # 0.1 Nucleated Red Blood Cells # 0.0 Sodium Level 145 H Potassium Level 4.0 Chloride Level 110 Carbon Dioxide Level 23 Anion Gap 16 Blood Urea Nitrogen 15 Creatinine 0.86 Glucose Level 87 # Hemoglobin A1c 4.3 Calcium Level 8.8 Test 12/30/16 17:37 12/30/16 21:15 Bedside Glucose 115 108 Medications Medications Current Medications Sodium Chloride (NS) 1,000 ml @ 70 mls/hr [id number] IV Last administered on 06:22; Admin Dose 70 MLS/HR; Start 12/28/16 at 16:05 Ondansetron HCl (Zofran Inj) 4 mg Q6H PRN IV NAUSEA AND/OR VOMITING; Start at 16:30 Metoclopramide HCl (Reglan) 10 mg Q6H PRN IV NAUSEA AND/OR VOMITING; Start at 16:30 Acetaminophen (Tylenol Tab) 650 mg Q6H PRN PO PAIN LEVEL 1-3 OR FEVER; Start 12/28/16 at 16:30 Ibuprofen (Motrin) 600 mg Q6H PRN PO PAIN LEVEL 1-3; Start 12/28/16 at 16:30 Acetaminophen/ Hydrocodone Bitart ([place] (5/325)) 1 tab Q6H PRN PO MODERATE PAIN LEVEL 4-6; Start 12/28/16 at 16:30 Morphine Sulfate (morphine) 2 mg Q4H PRN IV SEVERE PAIN LEVEL 7-10; Start at 16:30 Docusate Sodium (Colace) 100 mg Q12H PRN PO CONSTIPATION; Start 12/28/16 at 16 :30 Famotidine (Pepcid) 20 mg DAILY PO Last administered on 12/30/16 08:30; Admin Dose 20 MG; Start 12/29/16 at 09:00 Diagnostic Test (Pha) (Accu-Chek) 1 ea 02 XX ; Start 12/29/16 at 02:00 Lorazepam 1 mg 1 mg Q4 PRN IV agitation; Start 12/28/16 at 16:30 Multivitamins/ Thiamine HCl/ Sodium Chloride (Mvi Adult/ Vitamin B1/NS) 1,011 ml @ 125 mls/hr DAILY@09 IVPB Last administered on 12/30/16 09:10; Admin Dose 125 MLS/HR; Start 12/29/16 at 09:00 Miscellaneous Information 1 ea NOTE XX ; Start 12/28/16 at 17:00 Glucose (Glutose) 15 gm Q15M PRN PO DECREASED GLUCOSE; Start 12/28/16 at 17:00 Glucose (Glutose) 22.5 gm Q15M PRN PO DECREASED GLUCOSE; Start 12/28/16 at 17: 00 Dextrose (D50w Syringe) 25 ml Q15M PRN IV DECREASED GLUCOSE; Start 12/28/16 at 17:00 Dextrose (D50w Syringe) 50 ml Q15M PRN IV DECREASED GLUCOSE; Start 12/28/16 at 17:00 Glucagon (Glucagen) 1 mg Q15M PRN IM DECREASED GLUCOSE; Start 12/28/16 at 17: 00 Glucose (Glutose) 15 gm Q15M PRN BUCCAL DECREASED GLUCOSE; Start 12/28/16 at 17:00 Folic Acid (Folic Acid) 1 mg DAILY PO Last administered on 12/30/16 08:30; Admin Dose 1 MG; Start 12/29/16 at 09:00 Dronabinol (Marinol) 2.5 mg DAILY PO Last administered on 12/30/16 13:33; Admin Dose 2.5 MG; Start 12/30/16 at 12:30 Nicotine (Nicoderm 21 Mg/ 24hr) 1 patch DAILY TRANSDERM Last administered on 13:34; Admin Dose 1 PATCH; Start 12/30/16 at 12:30 Methylprednisolone Sodium Succinate (Solu-Medrol) 100 mg Q12 IV Last administered on 12/30/16 21:16; Admin Dose 100 MG; Start 12/30/16 at 21:00 SCAR FISCHER MD Dec 30, 2016 21:40
[2016-12-31] MEDS: SOD CHLORIDE 0.9% 1,000 ML IV SCH ×2 (01:17→06:03)
[2016-12-31 02:00] VITALS: BP 109/57; RESP 18
[2016-12-31] MEDS: ACCU-CHEK XX SCH (02:00)
[2016-12-31 05:01] LABS: ABNORMAL IP MESSAGE 1; BASOPHILS % 0.1 % (0.0-2.0); HEMATOCRIT 44.3 % (42.0-52.0); HEMOGLOBIN 15.7 g/dl (14.0-18.0); LYMPHOCYTES # 1.2 10^3/ul (0.8-2.9); MEAN CORPUSCULAR HEMOGLOBIN 28.6 pg (29.0-33.0); MEAN CORPUSCULAR HGB CONC 35.4 g/dl (32.0-37.0); MEAN CORPUSCULAR VOLUME 80.8 fl (82.0-101.0); MEAN PLATELET VOLUME 12.6 fl (7.4-10.4); MONOCYTE # 0.1 10^3/ul (0.3-0.9); MONOCYTES % 1.4 % (0.0-11.0); NEUTROPHIL # 8.1 10^3/ul (1.6-7.5); NEUTROPHILS % 84.9 % (39.0-77.0); POSITIVE DIFF @See below; RED BLOOD COUNT 5.48 10^6/ul (4.70-6.10); WHITE BLOOD COUNT 9.6 10^3/ul (4.8-10.8)
[2016-12-31 05:05] LABS: PLATELET COUNT 19 10^3/UL (140-415)
[2016-12-31] MEDS: INSULIN ASPART [NOVOLOG] 3 ML PEN SC SCH ×4 (07:50→20:22)
[2016-12-31] MEDS: MULTIVITAMINS 10 ML, THIAMINE 100 MG in SOD CHLORIDE 0.9% 1,000 ML IVPB SCH (08:50)
[2016-12-31] MEDS: FAMOTIDINE 20 MG TAB PO SCH (08:52)
[2016-12-31] MEDS: NICOTINE (21 MG/24 HR) PATCH TRANSDERM SCH (08:52)
[2016-12-31] MEDS: FOLIC ACID 1 MG TAB PO SCH (08:52)
[2016-12-31] MEDS: DRONABINOL 2.5 MG CAP PO SCH (08:52)
[2016-12-31] MEDS: METHYLPREDNISOLONE 125 MG INJ IV SCH ×2 (08:53→20:20)
--- NOTE | 2016-12-31 12:05 | PN ---
Date/Time of Note Date/Time of Note DATE: 12/31/16 TIME: 12:04 Assessment/Plan VTE Prophylaxis VTE Prophylaxis Intervention: ambulation Lines/Catheters [facility] Peripheral IV Urinary Cath still in place: No Assessment/Plan Chief Complaint/Hosp Course 1. Severe thrombocytopenia with a history of idiopathic thrombocytopenic purpura, better 2. Depression with suicidal ideation, but no plan, better. 3. Marijuana and amphetamine use with hallucinations. 4. Homelessness. 5. Smoker. Problems: Assessment/Plan 1. Platelets 19 2. continue treatment Subjective 24 Hr Interval Summary Constitutional: improved, no complaints Exam/Review of Systems Vital Signs Vitals Vital Signs Date Time Temp Pulse Resp B/P Pulse Ox O2 Delivery O2 Flow Rate FiO2 12/31/16 02:00 97.8 56 18 109/57 98 12/28/16 15:57 Room Air Intake and Output 12/30/16 12/30/16 12/31/16 15:00 23:00 07:00 Intake Total 3760 ml 1280 ml Output Total 600 ml 1000 ml Balance 3160 ml 280 ml Exam Constitutional: alert, oriented ENMT: nl external ears & nose Neck: supple Respiratory: clear to auscultation Cardiovascular: regular rate and rhythm Results Result Diagram: 12/31/16 0433 12/30/16 0440 Results 24 hrs Laboratory Tests Test 12/30/16 12:46 12/30/16 17:37 12/30/16 21:15 12/31/16 04:33 Bedside Glucose 77 115 108 White Blood Count 9.6 # Red Blood Count 5.48 Hemoglobin 15.7 Hematocrit 44.3 Mean Corpuscular Volume 80.8 L Mean Corpuscular Hemoglobin 28.6 L Mean Corpuscular Hemoglobin Concent 35.4 Red Cell Distribution Width 12.0 Platelet Count 19 #*L Mean Platelet Volume 12.6 H Neutrophils % 84.9 H Lymphocytes % 13.0 L Monocytes % 1.4 Eosinophils % 0.0 Basophils % 0.1 Nucleated Red Blood Cells % 0.0 Neutrophils # 8.1 H Lymphocytes # 1.2 Monocytes # 0.1 L Eosinophils # 0.0 Basophils # 0.0 Nucleated Red Blood Cells # 0.0 Test 12/31/16 08:46 Bedside Glucose 123 Medications Medications Current Medications Sodium Chloride (NS) 1,000 ml @ 70 mls/hr [id number] IV Last administered on 06:03; Admin Dose 70 MLS/HR; Start 12/28/16 at 16:05 Ondansetron HCl (Zofran Inj) 4 mg Q6H PRN IV NAUSEA AND/OR VOMITING; Start at 16:30 Metoclopramide HCl (Reglan) 10 mg Q6H PRN IV NAUSEA AND/OR VOMITING; Start at 16:30 Acetaminophen (Tylenol Tab) 650 mg Q6H PRN PO PAIN LEVEL 1-3 OR FEVER; Start 12/28/16 at 16:30 Ibuprofen (Motrin) 600 mg Q6H PRN PO PAIN LEVEL 1-3; Start 12/28/16 at 16:30 Acetaminophen/ Hydrocodone Bitart ([place] (5/325)) 1 tab Q6H PRN PO MODERATE PAIN LEVEL 4-6; Start 12/28/16 at 16:30 Morphine Sulfate (morphine) 2 mg Q4H PRN IV SEVERE PAIN LEVEL 7-10; Start at 16:30 Docusate Sodium (Colace) 100 mg Q12H PRN PO CONSTIPATION; Start 12/28/16 at 16 :30 Famotidine (Pepcid) 20 mg DAILY PO Last administered on 12/31/16 08:52; Admin Dose 20 MG; Start 12/29/16 at 09:00 Diagnostic Test (Pha) (Accu-Chek) 1 ea 02 XX ; Start 12/29/16 at 02:00 Lorazepam 1 mg 1 mg Q4 PRN IV agitation; Start 12/28/16 at 16:30 Multivitamins/ Thiamine HCl/ Sodium Chloride (Mvi Adult/ Vitamin B1/NS) 1,011 ml @ 125 mls/hr DAILY@09 IVPB Last administered on 12/31/16 08:50; Admin Dose 125 MLS/HR; Start 12/29/16 at 09:00 Miscellaneous Information 1 ea NOTE XX ; Start 12/28/16 at 17:00 Glucose (Glutose) 15 gm Q15M PRN PO DECREASED GLUCOSE; Start 12/28/16 at 17:00 Glucose (Glutose) 22.5 gm Q15M PRN PO DECREASED GLUCOSE; Start 12/28/16 at 17: 00 Dextrose (D50w Syringe) 25 ml Q15M PRN IV DECREASED GLUCOSE; Start 12/28/16 at 17:00 Dextrose (D50w Syringe) 50 ml Q15M PRN IV DECREASED GLUCOSE; Start 12/28/16 at 17:00 Glucagon (Glucagen) 1 mg Q15M PRN IM DECREASED GLUCOSE; Start 12/28/16 at 17: 00 Glucose (Glutose) 15 gm Q15M PRN BUCCAL DECREASED GLUCOSE; Start 12/28/16 at 17:00 Folic Acid (Folic Acid) 1 mg DAILY PO Last administered on 12/31/16 08:52; Admin Dose 1 MG; Start 12/29/16 at 09:00 Dronabinol (Marinol) 2.5 mg DAILY PO Last administered on 12/31/16 08:52; Admin Dose 2.5 MG; Start 12/30/16 at 12:30 Nicotine (Nicoderm 21 Mg/ 24hr) 1 patch DAILY TRANSDERM Last administered on 08:52; Admin Dose 1 PATCH; Start 12/30/16 at 12:30 Methylprednisolone Sodium Succinate (Solu-Medrol) 100 mg Q12 IV Last administered on 12/31/16 08:53; Admin Dose 100 MG; Start 12/30/16 at 21:00 SABRINA RONDON Dec 31, 2016 12:05
--- NOTE | 2016-12-31 12:29 | PSY ---
Date/Time of Note Date/Time of Note DATE: 12/31/16 TIME: 15:26 Psychiatric Subjective Eval Consent Pt consented to telemedicine: Yes Subjective Evaluation Patient location: emergency Chief Complaint: BIBA FOR DEPRESSION AND METH USE History of present illness HPI: 21 yo homeless male with ho methamphetamine abuse, came to ED with depression and SI (pt clearly states he wanted to kill self due to his medical condition), found to have severe thrombocytopenia, now inpatient. No psychosis, no michael. Wants admission. Past Psych Hx: denies past admits or suicide PMHx: thrombocytopenia Meds: platelets All: nkda MSE cooperative, slow speech, pleasant, depressed, restricted affect, organized , no delusions no avh +SI Imp 21 yo male with depression, si vol admit for now no standing meds given how low his platelets are and potential impact on clotting, defer meds to inpatient team; also, pt not in emergent situation continue 1:1 sitter Medical history Problems Medical Problems: (1) Depression Status: Acute (2) Thrombocytopenia Status: Acute Allergies: Coded Allergies: No Known Allergy (Unverified , 12/28/16) Psychiatric Objective Eval Mental Status Examination: Laboratory Results Laboratory Tests Test 12/29/16 12:50 12/29/16 17:37 12/29/16 21:59 12/30/16 04:40 Bedside Glucose 106mg/dL 130mg/dL 99mg/dL White Blood Count 6.610^3/ul Red Blood Count 5.0810^6/ul Hemoglobin 14.7g/dl Hematocrit 42.0% Mean Corpuscular Volume 82.7fl Mean Corpuscular Hemoglobin 28.9pg Mean Corpuscular Hemoglobin Concent 35.0g/dl Red Cell Distribution Width 12.5% Platelet Count 310^3/UL Mean Platelet Volume fl Neutrophils % 47.4% Lymphocytes % 39.8% Monocytes % 8.9% Eosinophils % 2.4% Basophils % 1.2% Nucleated Red Blood Cells % 0.0/100WBC Neutrophils # 3.110^3/ul Lymphocytes # 2.610^3/ul Monocytes # 0.610^3/ul Eosinophils # 0.210^3/ul Basophils # 0.110^3/ul Nucleated Red Blood Cells # 0.010^3/ul Sodium Level 145mmol/L Potassium Level 4.0mmol/L Chloride Level 110mmol/L Carbon Dioxide Level 23mmol/L Anion Gap 16 Blood Urea Nitrogen 15mg/dl Creatinine 0.86mg/dl Glucose Level 87mg/dl Hemoglobin A1c 4.3% Calcium Level 8.8mg/dl Test 12/30/16 08:55 12/30/16 12:46 12/30/16 17:37 12/30/16 21:15 Bedside Glucose 92mg/dL 77mg/dL 115mg/dL 108mg/dL Test 12/31/16 04:33 12/31/16 08:46 White Blood Count 9.610^3/ul Red Blood Count 5.4810^6/ul Hemoglobin 15.7g/dl Hematocrit 44.3% Mean Corpuscular Volume 80.8fl Mean Corpuscular Hemoglobin 28.6pg Mean Corpuscular Hemoglobin Concent 35.4g/dl Red Cell Distribution Width 12.0% Platelet Count 1910^3/UL Mean Platelet Volume 12.6fl Neutrophils % 84.9% Lymphocytes % 13.0% Monocytes % 1.4% Eosinophils % 0.0% Basophils % 0.1% Nucleated Red Blood Cells % 0.0/100WBC Neutrophils # 8.110^3/ul Lymphocytes # 1.210^3/ul Monocytes # 0.110^3/ul Eosinophils # 0.010^3/ul Basophils # 0.010^3/ul Nucleated Red Blood Cells # 0.010^3/ul Bedside Glucose 123mg/dL CHAD MAHER Dec 31, 2016 12:29
--- NOTE | 2016-12-31 14:19 | CONS ---
Date/Time of Note Date/Time of Note DATE: 12/31/16 TIME: 14:19 Assessment/Plan Assessment/Plan Chief Complaint/Hosp Course ITP- WITH SEVERE THROMBOCYTOPENIA history of ITP SMEAR- C/W ITP CONT TO MONITOR LDH, RETIC, FRACTIONATED BILI OLD RECORD -P CONT IV STEROIDS D/W PRIMARY MICROCYTOSIS IRON STUDIES- NOTED depression methamphetamine abuse. Problems: Consultation Date/Type/Reason Admit Date/Time Dec 28, 2016 at 15:01 Initial Consult Date 12/28/16 Type of Consultation: hemeon Referring Provider: KAM URENA MD 24 HR Interval Summary Free Text/Dictation post platelet transfusion on iv steroids Exam/Review of Systems Vital Signs Vitals Vital Signs Date Time Temp Pulse Resp B/P Pulse Ox O2 Delivery O2 Flow Rate FiO2 12/31/16 02:00 97.8 56 18 109/57 98 12/28/16 15:57 Room Air Intake and Output 12/30/16 12/30/16 12/31/16 15:00 23:00 07:00 Intake Total 3760 ml 1280 ml Output Total 600 ml 1000 ml Balance 3160 ml 280 ml Exam Const: NAD Head: Atraumatic Eyes: Normal Conjunctiva ENT: Normal External Ears, Nose and Mouth. Neck: Full range of motion..~ No meningismus. Resp: Clear to auscultation bilaterally Cardio: Regular rate and rhythm, no murmurs Abd: Soft, non tender, non distended. Normal bowel sounds Skin: No petechiae or rashes Back: No midline or flank tenderness Ext: No cyanosis, or edema Neur: Awake and depressed Psych: Depressed with suicidal ideation without plan Results Result Diagram: 12/31/16 0433 12/30/16 0440 Results 24 hrs Laboratory Tests Test 12/30/16 17:37 12/30/16 21:15 12/31/16 04:33 12/31/16 08:46 Bedside Glucose 115 108 123 White Blood Count 9.6 # Red Blood Count 5.48 Hemoglobin 15.7 Hematocrit 44.3 Mean Corpuscular Volume 80.8 L Mean Corpuscular Hemoglobin 28.6 L Mean Corpuscular Hemoglobin Concent 35.4 Red Cell Distribution Width 12.0 Platelet Count 19 #*L Mean Platelet Volume 12.6 H Neutrophils % 84.9 H Lymphocytes % 13.0 L Monocytes % 1.4 Eosinophils % 0.0 Basophils % 0.1 Nucleated Red Blood Cells % 0.0 Neutrophils # 8.1 H Lymphocytes # 1.2 Monocytes # 0.1 L Eosinophils # 0.0 Basophils # 0.0 Nucleated Red Blood Cells # 0.0 Test 12/31/16 12:42 Bedside Glucose 124 Medications Medications Current Medications Sodium Chloride (NS) 1,000 ml @ 70 mls/hr [id number] IV Last administered on 06:03; Admin Dose 70 MLS/HR; Start 12/28/16 at 16:05 Ondansetron HCl (Zofran Inj) 4 mg Q6H PRN IV NAUSEA AND/OR VOMITING; Start at 16:30 Metoclopramide HCl (Reglan) 10 mg Q6H PRN IV NAUSEA AND/OR VOMITING; Start at 16:30 Acetaminophen (Tylenol Tab) 650 mg Q6H PRN PO PAIN LEVEL 1-3 OR FEVER; Start 12/28/16 at 16:30 Ibuprofen (Motrin) 600 mg Q6H PRN PO PAIN LEVEL 1-3; Start 12/28/16 at 16:30 Acetaminophen/ Hydrocodone Bitart ([place] (5/325)) 1 tab Q6H PRN PO MODERATE PAIN LEVEL 4-6; Start 12/28/16 at 16:30 Morphine Sulfate (morphine) 2 mg Q4H PRN IV SEVERE PAIN LEVEL 7-10; Start at 16:30 Docusate Sodium (Colace) 100 mg Q12H PRN PO CONSTIPATION; Start 12/28/16 at 16 :30 Famotidine (Pepcid) 20 mg DAILY PO Last administered on 12/31/16 08:52; Admin Dose 20 MG; Start 12/29/16 at 09:00 Diagnostic Test (Pha) (Accu-Chek) 1 ea 02 XX ; Start 12/29/16 at 02:00 Lorazepam 1 mg 1 mg Q4 PRN IV agitation; Start 12/28/16 at 16:30 Multivitamins/ Thiamine HCl/ Sodium Chloride (Mvi Adult/ Vitamin B1/NS) 1,011 ml @ 125 mls/hr DAILY@09 IVPB Last administered on 12/31/16 08:50; Admin Dose 125 MLS/HR; Start 11/17/17 at 09:00 Miscellaneous Information 1 ea NOTE XX ; Start 12/28/16 at 17:00 Glucose (Glutose) 15 gm Q15M PRN PO DECREASED GLUCOSE; Start 12/28/16 at 17:00 Glucose (Glutose) 22.5 gm Q15M PRN PO DECREASED GLUCOSE; Start 12/28/16 at 17: 00 Dextrose (D50w Syringe) 25 ml Q15M PRN IV DECREASED GLUCOSE; Start 12/28/16 at 17:00 Dextrose (D50w Syringe) 50 ml Q15M PRN IV DECREASED GLUCOSE; Start 12/28/16 at 17:00 Glucagon (Glucagen) 1 mg Q15M PRN IM DECREASED GLUCOSE; Start 12/28/16 at 17: 00 Glucose (Glutose) 15 gm Q15M PRN BUCCAL DECREASED GLUCOSE; Start 12/28/16 at 17:00 Folic Acid (Folic Acid) 1 mg DAILY PO Last administered on 12/31/16 08:52; Admin Dose 1 MG; Start 12/29/16 at 09:00 Dronabinol (Marinol) 2.5 mg DAILY PO Last administered on 12/31/16 08:52; Admin Dose 2.5 MG; Start 12/30/16 at 12:30 Nicotine (Nicoderm 21 Mg/ 24hr) 1 patch DAILY TRANSDERM Last administered on 08:52; Admin Dose 1 PATCH; Start 12/30/16 at 12:30 Methylprednisolone Sodium Succinate (Solu-Medrol) 100 mg Q12 IV Last administered on 12/31/16 08:53; Admin Dose 100 MG; Start 12/30/16 at 21:00 SCAR FISCHER MD Dec 31, 2016 14:19
[2016-12-31 18:58] VITALS: BP 129/77; RESP 16
[2017-01-01] MEDS: ACCU-CHEK XX SCH (00:45)
[2017-01-01 01:12] VITALS: BP 101/53; RESP 16
[2017-01-01 05:07] LABS: ABNORMAL IP MESSAGE 1; BASOPHILS % 0.2 % (0.0-2.0); HEMATOCRIT 44.5 % (42.0-52.0); HEMOGLOBIN 15.6 g/dl (14.0-18.0); LYMPHOCYTES # 1.4 10^3/ul (0.8-2.9); LYMPHOCYTES % 12.1 % (15.0-51.0); MEAN CORPUSCULAR HEMOGLOBIN 28.8 pg (29.0-33.0); MEAN CORPUSCULAR HGB CONC 35.1 g/dl (32.0-37.0); MEAN CORPUSCULAR VOLUME 82.3 fl (82.0-101.0); MEAN PLATELET VOLUME 13.8 fl (7.4-10.4); MONOCYTE # 0.5 10^3/ul (0.3-0.9); MONOCYTES % 4.3 % (0.0-11.0); NEUTROPHIL # 9.7 10^3/ul (1.6-7.5); NEUTROPHILS % 82.6 % (39.0-77.0); POSITIVE DIFF @See below; RED BLOOD COUNT 5.41 10^6/ul (4.70-6.10); RED CELL DISTRIBUTION WIDTH 11.9 % (11.5-14.5); WHITE BLOOD COUNT 11.8 10^3/ul (4.8-10.8)
[2017-01-01 05:24] LABS: PLATELET COUNT 30 10^3/UL (140-415)
[2017-01-01] MEDS: SOD CHLORIDE 0.9% 1,000 ML IV SCH (06:02)
[2017-01-01 07:41] VITALS: BP 120/62; RESP 18
[2017-01-01] MEDS: FAMOTIDINE 20 MG TAB PO SCH (08:22)
[2017-01-01] MEDS: DRONABINOL 2.5 MG CAP PO SCH (08:22)
[2017-01-01] MEDS: FOLIC ACID 1 MG TAB PO SCH (08:22)
[2017-01-01] MEDS: NICOTINE (21 MG/24 HR) PATCH TRANSDERM SCH (08:23)
[2017-01-01] MEDS: METHYLPREDNISOLONE 125 MG INJ IV SCH ×2 (08:24→20:29)
[2017-01-01] MEDS: MULTIVITAMINS 10 ML, THIAMINE 100 MG in SOD CHLORIDE 0.9% 1,000 ML IVPB SCH (08:27)
[2017-01-01] MEDS: INSULIN ASPART [NOVOLOG] 3 ML PEN SC SCH ×4 (08:50→20:28)
--- NOTE | 2017-01-01 12:34 | PN ---
Date/Time of Note Date/Time of Note DATE: 01/01/17 TIME: 12:34 Assessment/Plan VTE Prophylaxis VTE Prophylaxis Intervention: ambulation Lines/Catheters IV [facility] Peripheral IV Urinary Cath still in place: No Assessment/Plan Chief Complaint/Hosp Course 1. Severe thrombocytopenia with a history of idiopathic thrombocytopenic purpura, better 2. Depression with suicidal ideation, but no plan, better. 3. Marijuana and amphetamine use with hallucinations. 4. Homelessness. 5. Smoker. Problems: Assessment/Plan 1. continue 1: 1, pt underwent psych evaluation 2. continue current treatment Subjective 24 Hr Interval Summary Constitutional: improved, no complaints Psychological: depression, No anxiety, No confusion, No nl mood/affect, No no complaints, No other, No suicidal Exam/Review of Systems Vital Signs Vitals Vital Signs Date Time Temp Pulse Resp B/P Pulse Ox O2 Delivery O2 Flow Rate FiO2 01/01/17 07:41 97.7 68 18 120/62 98 12/28/16 15:57 Room Air Intake and Output 12/31/16 12/31/16 01/01/17 15:00 23:00 07:00 Intake Total 2531 ml 1840 ml Output Total 1000 ml Balance 1531 ml 1840 ml Exam Constitutional: alert, oriented Respiratory: clear to auscultation Cardiovascular: regular rate and rhythm Results Result Diagram: 01/01/170 12/30/16 0440 Results 24 hrs Laboratory Tests Test 12/31/16 12:42 12/31/16 17:46 12/31/16 20:21 01/01/17 04:40 Bedside Glucose 124 133 153 White Blood Count 11.8 #H Red Blood Count 5.41 Hemoglobin 15.6 Hematocrit 44.5 Mean Corpuscular Volume 82.3 Mean Corpuscular Hemoglobin 28.8 L Mean Corpuscular Hemoglobin Concent 35.1 Red Cell Distribution Width 11.9 Platelet Count 30 #L Mean Platelet Volume 13.8 H Neutrophils % 82.6 H Lymphocytes % 12.1 L Monocytes % 4.3 Eosinophils % 0.0 Basophils % 0.2 Nucleated Red Blood Cells % 0.0 Neutrophils # 9.7 H Lymphocytes # 1.4 Monocytes # 0.5 Eosinophils # 0.0 Basophils # 0.0 Nucleated Red Blood Cells # 0.0 Test 01/01/17 06:25 01/01/17 08:55 Lab Scanned Report BLOOD TRANSFUSION Bedside Glucose 110 Medications Medications Current Medications Sodium Chloride (NS) 1,000 ml @ 70 mls/hr [id number] IV Last administered on 06:02; Admin Dose 70 MLS/HR; Start 12/28/16 at 16:05 Ondansetron HCl (Zofran Inj) 4 mg Q6H PRN IV NAUSEA AND/OR VOMITING; Start at 16:30 Metoclopramide HCl (Reglan) 10 mg Q6H PRN IV NAUSEA AND/OR VOMITING; Start at 16:30 Acetaminophen (Tylenol Tab) 650 mg Q6H PRN PO PAIN LEVEL 1-3 OR FEVER Last administered on 12/31/16 16:40; Admin Dose 650 MG; Start 12/28/16 at 16:30 Ibuprofen (Motrin) 600 mg Q6H PRN PO PAIN LEVEL 1-3; Start 12/28/16 at 16:30 Acetaminophen/ Hydrocodone Bitart ([place] (5/325)) 1 tab Q6H PRN PO MODERATE PAIN LEVEL 4-6; Start 12/28/16 at 16:30 Morphine Sulfate (morphine) 2 mg Q4H PRN IV SEVERE PAIN LEVEL 7-10; Start at 16:30 Docusate Sodium (Colace) 100 mg Q12H PRN PO CONSTIPATION; Start 12/28/16 at 16 :30 Famotidine (Pepcid) 20 mg DAILY PO Last administered on 01/01/17 08:22; Admin Dose 20 MG; Start 12/29/16 at 09:00 Diagnostic Test (Pha) (Accu-Chek) 1 ea 02 XX ; Start 12/29/16 at 02:00 Lorazepam 1 mg 1 mg Q4 PRN IV agitation; Start 12/28/16 at 16:30 Multivitamins/ Thiamine HCl/ Sodium Chloride (Mvi Adult/ Vitamin B1/NS) 1,011 ml @ 125 mls/hr DAILY@09 IVPB Last administered on 01/01/17 08:27; Admin Dose 125 MLS/HR; Start 12/29/16 at 09:00 Miscellaneous Information 1 ea NOTE XX ; Start 12/28/16 at 17:00 Glucose (Glutose) 15 gm Q15M PRN PO DECREASED GLUCOSE; Start 12/28/16 at 17:00 Glucose (Glutose) 22.5 gm Q15M PRN PO DECREASED GLUCOSE; Start 12/28/16 at 17: 00 Dextrose (D50w Syringe) 25 ml Q15M PRN IV DECREASED GLUCOSE; Start 12/28/16 at 17:00 Dextrose (D50w Syringe) 50 ml Q15M PRN IV DECREASED GLUCOSE; Start 12/28/16 at 17:00 Glucagon (Glucagen) 1 mg Q15M PRN IM DECREASED GLUCOSE; Start 12/28/16 at 17: 00 Glucose (Glutose) 15 gm Q15M PRN BUCCAL DECREASED GLUCOSE; Start 12/28/16 at 17:00 Folic Acid (Folic Acid) 1 mg DAILY PO Last administered on 01/01/17 08:22; Admin Dose 1 MG; Start 12/29/16 at 09:00 Dronabinol (Marinol) 2.5 mg DAILY PO Last administered on 01/01/17 08:22; Admin Dose 2.5 MG; Start 12/30/16 at 12:30 Nicotine (Nicoderm 21 Mg/ 24hr) 1 patch DAILY TRANSDERM Last administered on 08:23; Admin Dose 1 PATCH; Start 12/30/16 at 12:30 Methylprednisolone Sodium Succinate (Solu-Medrol) 100 mg Q12 IV Last administered on 01/01/17 08:24; Admin Dose 100 MG; Start 12/30/16 at 21:00 SABRINA RONDON Jan 01, 2017 12:34
[2017-01-01 15:52] VITALS: BP 124/66; RESP 18
[2017-01-01 20:04] VITALS: BP 122/56; RESP 16
--- NOTE | 2017-01-01 23:07 | CONS ---
Date/Time of Note Date/Time of Note DATE: 01/01/17 TIME: 23:06 Assessment/Plan Assessment/Plan Chief Complaint/Hosp Course ITP- WITH SEVERE THROMBOCYTOPENIA history of ITP SMEAR- C/W ITP CONT TO MONITOR LDH, RETIC, FRACTIONATED BILI OLD RECORD -P CONT IV STEROIDS D/W PRIMARY MICROCYTOSIS IRON STUDIES- NOTED depression methamphetamine abuse. Problems: Consultation Date/Type/Reason Admit Date/Time Dec 28, 2016 at 15:01 Initial Consult Date 12/28/16 Type of Consultation: hemeon Referring Provider: KAM URENA MD 24 HR Interval Summary Free Text/Dictation PLATELET COUNT IMPROVING Exam/Review of Systems Vital Signs Vitals Vital Signs Date Time Temp Pulse Resp B/P Pulse Ox O2 Delivery O2 Flow Rate FiO2 01/01/17 20:04 98.1 88 16 122/56 98 12/28/16 15:57 Room Air Intake and Output 12/31/16 12/31/16 01/01/17 15:00 23:00 07:00 Intake Total 2531 ml 1840 ml Output Total 1000 ml Balance 1531 ml 1840 ml Exam Const: NAD Head: Atraumatic Eyes: Normal Conjunctiva ENT: Normal External Ears, Nose and Mouth. Neck: Full range of motion..~ No meningismus. Resp: Clear to auscultation bilaterally Cardio: Regular rate and rhythm, no murmurs Abd: Soft, non tender, non distended. Normal bowel sounds Skin: No petechiae or rashes Back: No midline or flank tenderness Ext: No cyanosis, or edema Neur: Awake and depressed Psych: Depressed with suicidal ideation without plan Results Result Diagram: 01/01/17 0440 12/30/16 0440 Results 24 hrs Laboratory Tests Test 01/01/17 04:40 01/01/17 06:25 01/01/17 08:55 01/01/17 12:40 White Blood Count 11.8 #H Red Blood Count 5.41 Hemoglobin 15.6 Hematocrit 44.5 Mean Corpuscular Volume 82.3 Mean Corpuscular Hemoglobin 28.8 L Mean Corpuscular Hemoglobin Concent 35.1 Red Cell Distribution Width 11.9 Platelet Count 30 #L Mean Platelet Volume 13.8 H Neutrophils % 82.6 H Lymphocytes % 12.1 L Monocytes % 4.3 Eosinophils % 0.0 Basophils % 0.2 Nucleated Red Blood Cells % 0.0 Neutrophils # 9.7 H Lymphocytes # 1.4 Monocytes # 0.5 Eosinophils # 0.0 Basophils # 0.0 Nucleated Red Blood Cells # 0.0 Lab Scanned Report BLOOD TRANSFUSION Bedside Glucose 110 107 Test 01/01/17 17:37 01/01/17 20:28 Bedside Glucose 156 121 Medications Medications Current Medications Ondansetron HCl (Zofran Inj) 4 mg Q6H PRN IV NAUSEA AND/OR VOMITING; Start at 16:30 Metoclopramide HCl (Reglan) 10 mg Q6H PRN IV NAUSEA AND/OR VOMITING; Start at 16:30 Acetaminophen (Tylenol Tab) 650 mg Q6H PRN PO PAIN LEVEL 1-3 OR FEVER Last administered on 12/31/16 16:40; Admin Dose 650 MG; Start 12/28/16 at 16:30 Ibuprofen (Motrin) 600 mg Q6H PRN PO PAIN LEVEL 1-3; Start 12/28/16 at 16:30 Acetaminophen/ Hydrocodone Bitart ([place] (5/325)) 1 tab Q6H PRN PO MODERATE PAIN LEVEL 4-6; Start 12/28/16 at 16:30 Morphine Sulfate (morphine) 2 mg Q4H PRN IV SEVERE PAIN LEVEL 7-10; Start at 16:30 Docusate Sodium (Colace) 100 mg Q12H PRN PO CONSTIPATION; Start 12/28/16 at 16 :30 Famotidine (Pepcid) 20 mg DAILY PO Last administered on 01/01/17 08:22; Admin Dose 20 MG; Start 12/29/16 at 09:00 Diagnostic Test (Pha) (Accu-Chek) 1 ea 02 XX ; Start 12/29/16 at 02:00 Lorazepam (Ativan) 1 mg Q4 PRN IV agitation; Start 12/28/16 at 16:30 Miscellaneous Information 1 ea NOTE XX ; Start 12/28/16 at 17:00 Glucose (Glutose) 15 gm Q15M PRN PO DECREASED GLUCOSE; Start 12/28/16 at 17:00 Glucose (Glutose) 22.5 gm Q15M PRN PO DECREASED GLUCOSE; Start 12/28/16 at 17: 00 Dextrose (D50w Syringe) 25 ml Q15M PRN IV DECREASED GLUCOSE; Start 12/28/16 at 17:00 Dextrose (D50w Syringe) 50 ml Q15M PRN IV DECREASED GLUCOSE; Start 12/28/16 at 17:00 Glucagon (Glucagen) 1 mg Q15M PRN IM DECREASED GLUCOSE; Start 12/28/16 at 17: 00 Glucose (Glutose) 15 gm Q15M PRN BUCCAL DECREASED GLUCOSE; Start 12/28/16 at 17:00 Folic Acid (Folic Acid) 1 mg DAILY PO Last administered on 01/01/17 08:22; Admin Dose 1 MG; Start 12/29/16 at 09:00 Dronabinol (Marinol) 2.5 mg DAILY PO Last administered on 01/01/17 08:22; Admin Dose 2.5 MG; Start 12/30/16 at 12:30 Nicotine (Nicoderm 21 Mg/ 24hr) 1 patch DAILY TRANSDERM Last administered on 08:23; Admin Dose 1 PATCH; Start 12/30/16 at 12:30 Methylprednisolone Sodium Succinate (Solu-Medrol) 100 mg Q12 IV Last administered on 01/01/17 20:29; Admin Dose 100 MG; Start 12/30/16 at 21:00 SCAR FISCHER MD Jan 01, 2017 23:07
[2017-01-02] MEDS: ACCU-CHEK XX SCH (01:30)
[2017-01-02 02:07] VITALS: BP 139/89; RESP 18
[2017-01-02 05:20] LABS: ABNORMAL IP MESSAGE 1; BASOPHILS % 0.3 % (0.0-2.0); HEMATOCRIT 44.9 % (42.0-52.0); HEMOGLOBIN 15.6 g/dl (14.0-18.0); LYMPHOCYTES # 1.6 10^3/ul (0.8-2.9); LYMPHOCYTES % 10.6 % (15.0-51.0); MEAN CORPUSCULAR HEMOGLOBIN 28.5 pg (29.0-33.0); MEAN CORPUSCULAR HGB CONC 34.7 g/dl (32.0-37.0); MEAN CORPUSCULAR VOLUME 81.9 fl (82.0-101.0); MEAN PLATELET VOLUME 12.2 fl (7.4-10.4); MONOCYTE # 0.8 10^3/ul (0.3-0.9); NEUTROPHIL # 12.2 10^3/ul (1.6-7.5); NEUTROPHILS % 81.9 % (39.0-77.0); PLATELET COUNT 47 10^3/UL (140-415); POSITIVE DIFF @See below; RED BLOOD COUNT 5.48 10^6/ul (4.70-6.10); WHITE BLOOD COUNT 14.9 10^3/ul (4.8-10.8)
[2017-01-02] MEDS: INSULIN ASPART [NOVOLOG] 3 ML PEN SC SCH ×4 (07:50→20:52)
[2017-01-02 08:00] VITALS: BP 131/80; RESP 20
[2017-01-02] MEDS: FAMOTIDINE 20 MG TAB PO SCH (08:18)
[2017-01-02] MEDS: DRONABINOL 2.5 MG CAP PO SCH (08:18)
[2017-01-02] MEDS: FOLIC ACID 1 MG TAB PO SCH (08:18)
[2017-01-02] MEDS: METHYLPREDNISOLONE 125 MG INJ IV SCH (08:19)
[2017-01-02] MEDS: NICOTINE (21 MG/24 HR) PATCH TRANSDERM SCH (08:19)
--- NOTE | 2017-01-02 11:21 | PSY ---
Date/Time of Note Date/Time of Note DATE: 01/02/17 TIME: 11:16 Psychiatric Subjective Eval Consent Pt consented to telemedicine: Yes Subjective Evaluation Patient location: emergency Chief Complaint: BIBA FOR DEPRESSION AND METH USE History of present illness 21 y male self presenting to ED c/o depressed mood, vague SI and delusions of having a STD. Pt was high on meth. Pt is clean now, he was admitted for thrombocytopenia. He is medically cleared. PT is calm, pleasant, denies SI or HI, says he was just paranoid and high on meth. He is optimistic and hopeful. He says his mother will take him to [place] and from there he will livie with his father in [place]. he is future oriented and wants ot finish school. NO AH or VH, no paranoia, no depression. Past psychiatric history none Family History denies Medical history Problems Medical Problems: (1) Depression Status: Acute (2) Thrombocytopenia Status: Acute Allergies: Coded Allergies: No Known Allergy (Unverified , 12/28/16) Substance Abuse Substance abuse history: Yes Prior substance abuse treatmen: No Social History Marital status: single Level of education: 11th grade DPA/Conservatorship: No Occupation/Jail: unemployed Psychiatric Objective Eval Review of Systems: Review of Systems: Not Applicable Physical Examination: Physical Examination: Not Applicable Sleep: Adequate Appetite: Adequate Energy: Adequate Interest: Increased Mental Status Examination: Appearance: Groomed Eye Contact: Good Psychomotor Activity: Normal Behavior: Cooperative Speech: Clear AFFECT: Appropriate Mood: Appropriate/Full Thought Content: Normal Suicidal: No Homicidal: No On 72 hour hold: Yes Cognition: Alert Insight: Impared Judgement: Intact Laboratory Results Laboratory Tests Test 12/31/16 12:42 12/31/16 17:46 12/31/16 20:21 01/01/17 04:40 Bedside Glucose 124mg/dL 133mg/dL 153mg/dL White Blood Count 11.810^3/ul Red Blood Count 5.4110^6/ul Hemoglobin 15.6g/dl Hematocrit 44.5% Mean Corpuscular Volume 82.3fl Mean Corpuscular Hemoglobin 28.8pg Mean Corpuscular Hemoglobin Concent 35.1g/dl Red Cell Distribution Width 11.9% Platelet Count 3010^3/UL Mean Platelet Volume 13.8fl Neutrophils % 82.6% Lymphocytes % 12.1% Monocytes % 4.3% Eosinophils % 0.0% Basophils % 0.2% Nucleated Red Blood Cells % 0.0/100WBC Neutrophils # 9.710^3/ul Lymphocytes # 1.410^3/ul Monocytes # 0.510^3/ul Eosinophils # 0.010^3/ul Basophils # 0.010^3/ul Nucleated Red Blood Cells # 0.010^3/ul Test 01/01/17 06:25 01/01/17 08:55 01/01/17 12:40 01/01/17 17:37 Lab Scanned Report BLOOD [id number] Bedside Glucose 110mg/dL 107mg/dL 156mg/dL Test 01/01/17 20:28 01/02/17 04:46 01/02/17 08:17 Bedside Glucose 121mg/dL 86mg/dL White Blood Count 14.910^3/ul Red Blood Count 5.4810^6/ul Hemoglobin 15.6g/dl Hematocrit 44.9% Mean Corpuscular Volume 81.9fl Mean Corpuscular Hemoglobin 28.5pg Mean Corpuscular Hemoglobin Concent 34.7g/dl Red Cell Distribution Width 12.0% Platelet Count 4710^3/UL Mean Platelet Volume 12.2fl Neutrophils % 81.9% Lymphocytes % 10.6% Monocytes % 5.0% Eosinophils % 0.0% Basophils % 0.3% Nucleated Red Blood Cells % 0.0/100WBC Neutrophils # 12.210^3/ul Lymphocytes # 1.610^3/ul Monocytes # 0.810^3/ul Eosinophils # 0.010^3/ul Basophils # 0.010^3/ul Nucleated Red Blood Cells # 0.010^3/ul Assessment and Plan Assessment/Diagnosis Dennis I: Amphetamine use disorder. Amphetamine induced psychosis, resolved. Dennis II: defered Dennis III: thrombocytopenia Dennis IV: moderate Dennis V: GAF 50 Recommendation/Plan Medication Management Consider starting on Abilify 2 mg poqd for psychosis and depression Psychotherapy refer to 12 step program Follow-up/Disposition refer to out mental [facility] [place] [address] Recommendation: CARLA RENDON MD Jan 02, 2017 11:21
[2017-01-02 15:49] VITALS: BP 128/80; RESP 18
--- NOTE | 2017-01-02 16:34 | CONS ---
Date/Time of Note Date/Time of Note DATE: 01/02/17 TIME: 16:33 Assessment/Plan Assessment/Plan Chief Complaint/Hosp Course ITP- WITH SEVERE THROMBOCYTOPENIA history of ITP SMEAR- C/W ITP CONT TO MONITOR LDH, RETIC, FRACTIONATED BILI OLD RECORD -P CHANGE TO PO STEROIDS D/W PRIMARY MICROCYTOSIS IRON STUDIES- NOTED depression methamphetamine abuse. Problems: Consultation Date/Type/Reason Admit Date/Time Dec 28, 2016 at 15:01 Initial Consult Date 12/28/16 Type of Consultation: hemeon Referring Provider: KAM URENA MD 24 HR Interval Summary Free Text/Dictation ALL NOTED COUNT IMPROVING Exam/Review of Systems Vital Signs Vitals Vital Signs Date Time Temp Pulse Resp B/P Pulse Ox O2 Delivery O2 Flow Rate FiO2 01/02/17 15:49 98.0 80 18 128/80 94 Intake and Output 01/01/17 01/01/17 01/02/17 15:00 23:00 07:00 Intake Total 1906 ml 1410 ml Output Total 1200 ml 1800 ml Balance 706 ml -390 ml Exam Const: NAD Head: Atraumatic Eyes: Normal Conjunctiva ENT: Normal External Ears, Nose and Mouth. Neck: Full range of motion..~ No meningismus. Resp: Clear to auscultation bilaterally Cardio: Regular rate and rhythm, no murmurs Abd: Soft, non tender, non distended. Normal bowel sounds Skin: No petechiae or rashes Back: No midline or flank tenderness Ext: No cyanosis, or edema Neur: Awake and depressed Psych: Depressed with suicidal ideation without plan Results Result Diagram: 01/02/17 0446 12/30/16 0440 Results 24 hrs Laboratory Tests Test 01/01/17 17:37 01/01/17 20:28 01/02/17 04:46 01/02/17 08:17 Bedside Glucose 156 121 86 White Blood Count 14.9 #H Red Blood Count 5.48 Hemoglobin 15.6 Hematocrit 44.9 Mean Corpuscular Volume 81.9 L Mean Corpuscular Hemoglobin 28.5 L Mean Corpuscular Hemoglobin Concent 34.7 Red Cell Distribution Width 12.0 Platelet Count 47 #L Mean Platelet Volume 12.2 H Neutrophils % 81.9 H Lymphocytes % 10.6 L Monocytes % 5.0 Eosinophils % 0.0 Basophils % 0.3 Nucleated Red Blood Cells % 0.0 Neutrophils # 12.2 H Lymphocytes # 1.6 Monocytes # 0.8 Eosinophils # 0.0 Basophils # 0.0 Nucleated Red Blood Cells # 0.0 Test 01/02/17 12:28 Bedside Glucose 100 Medications Medications Current Medications Ondansetron HCl (Zofran Inj) 4 mg Q6H PRN IV NAUSEA AND/OR VOMITING; Start at 16:30 Metoclopramide HCl (Reglan) 10 mg Q6H PRN IV NAUSEA AND/OR VOMITING; Start at 16:30 Acetaminophen (Tylenol Tab) 650 mg Q6H PRN PO PAIN LEVEL 1-3 OR FEVER Last administered on 12/31/16 16:40; Admin Dose 650 MG; Start 12/28/16 at 16:30 Ibuprofen (Motrin) 600 mg Q6H PRN PO PAIN LEVEL 1-3; Start 12/28/16 at 16:30 Acetaminophen/ Hydrocodone Bitart ([place] (5/325)) 1 tab Q6H PRN PO MODERATE PAIN LEVEL 4-6; Start 12/28/16 at 16:30 Morphine Sulfate (morphine) 2 mg Q4H PRN IV SEVERE PAIN LEVEL 7-10; Start at 16:30 Docusate Sodium (Colace) 100 mg Q12H PRN PO CONSTIPATION; Start 12/28/16 at 16 :30 Famotidine (Pepcid) 20 mg DAILY PO Last administered on 01/02/17 08:18; Admin Dose 20 MG; Start 12/29/16 at 09:00 Diagnostic Test (Pha) (Accu-Chek) 1 ea 02 XX ; Start 12/29/16 at 02:00 Lorazepam (Ativan) 1 mg Q4 PRN IV agitation; Start 12/28/16 at 16:30 Miscellaneous Information 1 ea NOTE XX ; Start 12/28/16 at 17:00 Glucose (Glutose) 15 gm Q15M PRN PO DECREASED GLUCOSE; Start 12/28/16 at 17:00 Glucose (Glutose) 22.5 gm Q15M PRN PO DECREASED GLUCOSE; Start 12/28/16 at 17: 00 Dextrose (D50w Syringe) 25 ml Q15M PRN IV DECREASED GLUCOSE; Start 12/28/16 at 17:00 Dextrose (D50w Syringe) 50 ml Q15M PRN IV DECREASED GLUCOSE; Start 12/28/16 at 17:00 Glucagon (Glucagen) 1 mg Q15M PRN IM DECREASED GLUCOSE; Start 12/28/16 at 17: 00 Glucose (Glutose) 15 gm Q15M PRN BUCCAL DECREASED GLUCOSE; Start 12/28/16 at 17:00 Folic Acid (Folic Acid) 1 mg DAILY PO Last administered on 01/02/17 08:18; Admin Dose 1 MG; Start 12/29/16 at 09:00 Dronabinol (Marinol) 2.5 mg DAILY PO Last administered on 01/02/17 08:18; Admin Dose 2.5 MG; Start 12/30/16 at 12:30 Nicotine (Nicoderm 21 Mg/ 24hr) 1 patch DAILY TRANSDERM Last administered on 08:23; Admin Dose 1 PATCH; Start 12/30/16 at 12:30 Methylprednisolone Sodium Succinate (Solu-Medrol) 100 mg Q12 IV Last administered on 01/02/17 08:19; Admin Dose 100 MG; Start 12/30/16 at 21:00 SCAR FISCHER MD Jan 02, 2017 16:34
--- NOTE | 2017-01-02 19:13 | PN ---
Date/Time of Note Date/Time of Note DATE: 01/02/17 TIME: 19:11 Assessment/Plan VTE Prophylaxis VTE Prophylaxis Intervention: other VTE Contraindication Reason: bleeding Lines/Catheters IV Catheter Type (from Nrsg): Saline Lock Central line still needed: No Urinary Cath still in place: No Assessment/Plan Chief Complaint/Hosp Course 21 y/o with 1 Severe thrombocytopenia with a history of idiopathic thrombocytopenic purpura , better, plt count improved to 40 2. Depression with suicidal ideation, but no plan, better., removed 5150 3. Marijuana and amphetamine use with hallucinations. 4. Homelessness. 5. Smoker. Problems: Assessment/Plan 1. dc hold 2. on po steroid 60 mg pred, likley dc tmw but homeless Problems: Subjective 24 Hr Interval Summary Free Text/Dictation Pt feels better Pscy hold removed Exam/Review of Systems Vital Signs Vitals Vital Signs Date Time Temp Pulse Resp B/P Pulse Ox O2 Delivery O2 Flow Rate FiO2 01/02/17 15:49 98.0 80 18 128/80 94 Intake and Output 01/01/17 01/01/17 01/02/17 15:00 23:00 07:00 Intake Total 1906 ml 1410 ml Output Total 1200 ml 1800 ml Balance 706 ml -390 ml Exam Constitutional: alert, oriented Respiratory: clear to auscultation Cardiovascular: regular rate and rhythm Results Result Diagram: 01/02/176 12/30/16 0440 Results 24 hrs Laboratory Tests Test 01/01/17 20:28 01/02/17 04:46 01/02/17 08:17 01/02/17 12:28 Bedside Glucose 121 86 100 White Blood Count 14.9 #H Red Blood Count 5.48 Hemoglobin 15.6 Hematocrit 44.9 Mean Corpuscular Volume 81.9 L Mean Corpuscular Hemoglobin 28.5 L Mean Corpuscular Hemoglobin Concent 34.7 Red Cell Distribution Width 12.0 Platelet Count 47 #L Mean Platelet Volume 12.2 H Neutrophils % 81.9 H Lymphocytes % 10.6 L Monocytes % 5.0 Eosinophils % 0.0 Basophils % 0.3 Nucleated Red Blood Cells % 0.0 Neutrophils # 12.2 H Lymphocytes # 1.6 Monocytes # 0.8 Eosinophils # 0.0 Basophils # 0.0 Nucleated Red Blood Cells # 0.0 Test 11/21/17 17:13 Bedside Glucose 117 Medications Medications Current Medications Ondansetron HCl (Zofran Inj) 4 mg Q6H PRN IV NAUSEA AND/OR VOMITING; Start at 16:30 Metoclopramide HCl (Reglan) 10 mg Q6H PRN IV NAUSEA AND/OR VOMITING; Start at 16:30 Acetaminophen (Tylenol Tab) 650 mg Q6H PRN PO PAIN LEVEL 1-3 OR FEVER Last administered on 12/31/16 16:40; Admin Dose 650 MG; Start 12/28/16 at 16:30 Ibuprofen (Motrin) 600 mg Q6H PRN PO PAIN LEVEL 1-3; Start 12/28/16 at 16:30 Acetaminophen/ Hydrocodone Bitart ([place] (5/325)) 1 tab Q6H PRN PO MODERATE PAIN LEVEL 4-6; Start 12/28/16 at 16:30 Morphine Sulfate (morphine) 2 mg Q4H PRN IV SEVERE PAIN LEVEL 7-10; Start at 16:30 Docusate Sodium (Colace) 100 mg Q12H PRN PO CONSTIPATION; Start 12/28/16 at 16 :30 Famotidine (Pepcid) 20 mg DAILY PO Last administered on 01/02/17 08:18; Admin Dose 20 MG; Start 12/29/16 at 09:00 Diagnostic Test (Pha) (Accu-Chek) 1 ea 02 XX ; Start 12/29/16 at 02:00 Lorazepam (Ativan) 1 mg Q4 PRN IV agitation; Start 12/28/16 at 16:30 Miscellaneous Information 1 ea NOTE XX ; Start 12/28/16 at 17:00 Glucose (Glutose) 15 gm Q15M PRN PO DECREASED GLUCOSE; Start 12/28/16 at 17:00 Glucose (Glutose) 22.5 gm Q15M PRN PO DECREASED GLUCOSE; Start 12/28/16 at 17: 00 Dextrose (D50w Syringe) 25 ml Q15M PRN IV DECREASED GLUCOSE; Start 12/28/16 at 17:00 Dextrose (D50w Syringe) 50 ml Q15M PRN IV DECREASED GLUCOSE; Start 12/28/16 at 17:00 Glucagon (Glucagen) 1 mg Q15M PRN IM DECREASED GLUCOSE; Start 12/28/16 at 17: 00 Glucose (Glutose) 15 gm Q15M PRN BUCCAL DECREASED GLUCOSE; Start 12/28/16 at 17:00 Folic Acid (Folic Acid) 1 mg DAILY PO Last administered on 01/02/17 08:18; Admin Dose 1 MG; Start 12/29/16 at 09:00 Dronabinol (Marinol) 2.5 mg DAILY PO Last administered on 01/02/17 08:18; Admin Dose 2.5 MG; Start 12/30/16 at 12:30 Nicotine (Nicoderm 21 Mg/ 24hr) 1 patch DAILY TRANSDERM Last administered on 08:23; Admin Dose 1 PATCH; Start 12/30/16 at 12:30 Prednisone (Prednisone) 60 mg DAILY PO ; Start 01/03/17 at 09:00 BNEJAMIN STOUT MD Jan 02, 2017 19:13
[2017-01-02 20:13] VITALS: BP 141/65; RESP 20
[2017-01-03] MEDS: ACCU-CHEK XX SCH (01:47)
[2017-01-03] MEDS ORDERED: VITAMIN A & D 5 GM OINT PACKET TOP ONE (02:41)
[2017-01-03 02:43] VITALS: BP 138/62; RESP 18
[2017-01-03 06:08] LABS: ABNORMAL IP MESSAGE 1; BASOPHIL # 0.1 10^3/ul (0.0-0.1); BASOPHILS % 0.5 % (0.0-2.0); EOSINOPHILS % 0.3 % (0.0-7.0); HEMATOCRIT 46.9 % (42.0-52.0); LYMPHOCYTES # 3.4 10^3/ul (0.8-2.9); LYMPHOCYTES % 21.9 % (15.0-51.0); MEAN CORPUSCULAR HEMOGLOBIN 28.4 pg (29.0-33.0); MEAN CORPUSCULAR HGB CONC 34.1 g/dl (32.0-37.0); MEAN CORPUSCULAR VOLUME 83.3 fl (82.0-101.0); MEAN PLATELET VOLUME 12.6 fl (7.4-10.4); MONOCYTE # 1.7 10^3/ul (0.3-0.9); MONOCYTES % 10.8 % (0.0-11.0); NEUTROPHIL # 9.8 10^3/ul (1.6-7.5); NEUTROPHILS % 63.1 % (39.0-77.0); PLATELET COUNT 38 10^3/UL (140-415); POSITIVE DIFF @See below; RED BLOOD COUNT 5.63 10^6/ul (4.70-6.10); RED CELL DISTRIBUTION WIDTH 12.3 % (11.5-14.5); WHITE BLOOD COUNT 15.5 10^3/ul (4.8-10.8)
[2017-01-03 07:30] VITALS: BP 109/55; RESP 20
[2017-01-03] MEDS: INSULIN ASPART [NOVOLOG] 3 ML PEN SC SCH ×4 (07:50→20:01)
[2017-01-03] MEDS: FOLIC ACID 1 MG TAB PO SCH (08:35)
[2017-01-03] MEDS: DRONABINOL 2.5 MG CAP PO SCH (08:35)
[2017-01-03] MEDS: FAMOTIDINE 20 MG TAB PO SCH (08:35)
[2017-01-03] MEDS: NICOTINE (21 MG/24 HR) PATCH TRANSDERM SCH (08:37)
[2017-01-03] MEDS: predniSONE 20 MG TAB PO SCH (08:37)
--- NOTE | 2017-01-03 14:39 | PN ---
Date/Time of Note Date/Time of Note DATE: 01/03/17 TIME: 14:38 Assessment/Plan VTE Prophylaxis VTE Prophylaxis Intervention: ambulation Lines/Catheters [facility] Saline [facility] Urinary Cath still in place: No Assessment/Plan Chief Complaint/Hosp Course 1. Severe thrombocytopenia with a history of idiopathic thrombocytopenic purpura, better 2. Depression with suicidal ideation, but no plan, better. 3. Marijuana and amphetamine use with hallucinations. 4. Homelessness. 5. Smoker. Problems: Assessment/Plan 1. continue treatment 2. Pt is on hold 5150, continue sitter until medically clear Subjective 24 Hr Interval Summary Constitutional: improved, no complaints Exam/Review of Systems Vital Signs Vitals Vital Signs Date Time Temp Pulse Resp B/P Pulse Ox O2 Delivery O2 Flow Rate FiO2 01/03/17 07:30 97.8 61 20 109/55 98 Intake and Output 01/02/17 01/02/17 01/03/17 15:00 23:00 07:00 Intake Total 840 ml 1100 ml Balance 840 ml 1100 ml Exam Constitutional: alert, oriented Eyes: EOMI, nl conjunctiva Respiratory: clear to auscultation Cardiovascular: regular rate and rhythm Results Result Diagram: 01/03/17 0445 12/30/16 0440 Results 24 hrs Laboratory Tests Test 01/02/17 17:13 01/02/17 20:51 01/03/17 04:45 01/03/17 08:42 Bedside Glucose 117 134 89 White Blood Count 15.5 H Red Blood Count 5.63 Hemoglobin 16.0 Hematocrit 46.9 Mean Corpuscular Volume 83.3 Mean Corpuscular Hemoglobin 28.4 L Mean Corpuscular Hemoglobin Concent 34.1 Red Cell Distribution Width 12.3 Platelet Count 38 L Mean Platelet Volume 12.6 H Neutrophils % 63.1 Lymphocytes % 21.9 Monocytes % 10.8 Eosinophils % 0.3 Basophils % 0.5 Nucleated Red Blood Cells % 0.0 Neutrophils # 9.8 H Lymphocytes # 3.4 H Monocytes # 1.7 H Eosinophils # 0.0 Basophils # 0.1 Nucleated Red Blood Cells # 0.0 Test 01/03/17 12:50 Bedside Glucose 95 Medications Medications Current Medications Ondansetron HCl (Zofran Inj) 4 mg Q6H PRN IV NAUSEA AND/OR VOMITING; Start at 16:30 Metoclopramide HCl (Reglan) 10 mg Q6H PRN IV NAUSEA AND/OR VOMITING; Start at 16:30 Acetaminophen (Tylenol Tab) 650 mg Q6H PRN PO PAIN LEVEL 1-3 OR FEVER Last administered on 12/31/16 16:40; Admin Dose 650 MG; Start 12/28/16 at 16:30 Ibuprofen (Motrin) 600 mg Q6H PRN PO PAIN LEVEL 1-3; Start 12/28/16 at 16:30 Acetaminophen/ Hydrocodone Bitart ([place] (5/325)) 1 tab Q6H PRN PO MODERATE PAIN LEVEL 4-6; Start 12/28/16 at 16:30 Morphine Sulfate (morphine) 2 mg Q4H PRN IV SEVERE PAIN LEVEL 7-10; Start at 16:30 Docusate Sodium (Colace) 100 mg Q12H PRN PO CONSTIPATION; Start 12/28/16 at 16 :30 Famotidine (Pepcid) 20 mg DAILY PO Last administered on 01/03/17 08:35; Admin Dose 20 MG; Start 12/29/16 at 09:00 Diagnostic Test (Pha) (Accu-Chek) 1 ea 02 XX ; Start 12/29/16 at 02:00 Lorazepam (Ativan) 1 mg Q4 PRN IV agitation; Start 12/28/16 at 16:30 Miscellaneous Information 1 ea NOTE XX ; Start 12/28/16 at 17:00 Glucose (Glutose) 15 gm Q15M PRN PO DECREASED GLUCOSE; Start 12/28/16 at 17:00 Glucose (Glutose) 22.5 gm Q15M PRN PO DECREASED GLUCOSE; Start 12/28/16 at 17: 00 Dextrose (D50w Syringe) 25 ml Q15M PRN IV DECREASED GLUCOSE; Start 12/28/16 at 17:00 Dextrose (D50w Syringe) 50 ml Q15M PRN IV DECREASED GLUCOSE; Start 12/28/16 at 17:00 Glucagon (Glucagen) 1 mg Q15M PRN IM DECREASED GLUCOSE; Start 12/28/16 at 17: 00 Glucose (Glutose) 15 gm Q15M PRN BUCCAL DECREASED GLUCOSE; Start 12/28/16 at 17:00 Folic Acid (Folic Acid) 1 mg DAILY PO Last administered on 01/03/17 08:35; Admin Dose 1 MG; Start 12/29/16 at 09:00 Dronabinol (Marinol) 2.5 mg DAILY PO Last administered on 01/03/17 08:35; Admin Dose 2.5 MG; Start 12/30/16 at 12:30 Nicotine (Nicoderm 21 Mg/ 24hr) 1 patch DAILY TRANSDERM Last administered on 08:23; Admin Dose 1 PATCH; Start 12/30/16 at 12:30 Prednisone (Prednisone) 60 mg DAILY PO Last administered on 01/03/17 08:37; Admin Dose 60 MG; Start 01/03/17 at 09:00 SABRINA RONDON Jan 03, 2017 14:39
--- NOTE | 2017-01-03 15:11 | CONS ---
Date/Time of Note Date/Time of Note DATE: 01/03/17 TIME: 15:10 Assessment/Plan Assessment/Plan Chief Complaint/Hosp Course ITP- WITH SEVERE THROMBOCYTOPENIA history of ITP SMEAR- C/W ITP CONT TO MONITOR LDH, RETIC, FRACTIONATED BILI OLD RECORD -P CONT PO STEROIDS, COUNT DROPPED TODAY D/W PRIMARY MICROCYTOSIS IRON STUDIES- NOTED depression methamphetamine abuse. Problems: Consultation Date/Type/Reason Admit Date/Time Dec 28, 2016 at 15:01 Initial Consult Date 12/28/16 Type of Consultation: hemeon Referring Provider: KAM URENA MD 24 HR Interval Summary Free Text/Dictation ALL NOTED COUNT SL DOWN AGAIN Exam/Review of Systems Vital Signs Vitals Vital Signs Date Time Temp Pulse Resp B/P Pulse Ox O2 Delivery O2 Flow Rate FiO2 01/03/17 07:30 97.8 61 20 109/55 98 Intake and Output 01/02/17 01/02/17 01/03/17 15:00 23:00 07:00 Intake Total 840 ml 1100 ml Balance 840 ml 1100 ml Exam Const: NAD Head: Atraumatic Eyes: Normal Conjunctiva ENT: Normal External Ears, Nose and Mouth. Neck: Full range of motion..~ No meningismus. Resp: Clear to auscultation bilaterally Cardio: Regular rate and rhythm, no murmurs Abd: Soft, non tender, non distended. Normal bowel sounds Skin: No petechiae or rashes Back: No midline or flank tenderness Ext: No cyanosis, or edema Neur: Awake and depressed Psych: Depressed with suicidal ideation without plan Results Result Diagram: 01/03/17 0445 12/30/16 0440 Results 24 hrs Laboratory Tests Test 01/02/17 17:13 01/02/17 20:51 01/03/17 04:45 01/03/17 08:42 Bedside Glucose 117 134 89 White Blood Count 15.5 H Red Blood Count 5.63 Hemoglobin 16.0 Hematocrit 46.9 Mean Corpuscular Volume 83.3 Mean Corpuscular Hemoglobin 28.4 L Mean Corpuscular Hemoglobin Concent 34.1 Red Cell Distribution Width 12.3 Platelet Count 38 L Mean Platelet Volume 12.6 H Neutrophils % 63.1 Lymphocytes % 21.9 Monocytes % 10.8 Eosinophils % 0.3 Basophils % 0.5 Nucleated Red Blood Cells % 0.0 Neutrophils # 9.8 H Lymphocytes # 3.4 H Monocytes # 1.7 H Eosinophils # 0.0 Basophils # 0.1 Nucleated Red Blood Cells # 0.0 Test 01/03/17 12:50 Bedside Glucose 95 Medications Medications Current Medications Ondansetron HCl (Zofran Inj) 4 mg Q6H PRN IV NAUSEA AND/OR VOMITING; Start at 16:30 Metoclopramide HCl (Reglan) 10 mg Q6H PRN IV NAUSEA AND/OR VOMITING; Start at 16:30 Acetaminophen (Tylenol Tab) 650 mg Q6H PRN PO PAIN LEVEL 1-3 OR FEVER Last administered on 12/31/16 16:40; Admin Dose 650 MG; Start 12/28/16 at 16:30 Ibuprofen (Motrin) 600 mg Q6H PRN PO PAIN LEVEL 1-3; Start 12/28/16 at 16:30 Acetaminophen/ Hydrocodone Bitart ([place] (5/325)) 1 tab Q6H PRN PO MODERATE PAIN LEVEL 4-6; Start 12/28/16 at 16:30 Morphine Sulfate (morphine) 2 mg Q4H PRN IV SEVERE PAIN LEVEL 7-10; Start at 16:30 Docusate Sodium (Colace) 100 mg Q12H PRN PO CONSTIPATION; Start 12/28/16 at 16 :30 Famotidine (Pepcid) 20 mg DAILY PO Last administered on 01/03/17 08:35; Admin Dose 20 MG; Start 12/29/16 at 09:00 Diagnostic Test (Pha) (Accu-Chek) 1 ea 02 XX ; Start 12/29/16 at 02:00 Lorazepam (Ativan) 1 mg Q4 PRN IV agitation; Start 12/28/16 at 16:30 Miscellaneous Information 1 ea NOTE XX ; Start 12/28/16 at 17:00 Glucose (Glutose) 15 gm Q15M PRN PO DECREASED GLUCOSE; Start 12/28/16 at 17:00 Glucose (Glutose) 22.5 gm Q15M PRN PO DECREASED GLUCOSE; Start 12/28/16 at 17: 00 Dextrose (D50w Syringe) 25 ml Q15M PRN IV DECREASED GLUCOSE; Start 12/28/16 at 17:00 Dextrose (D50w Syringe) 50 ml Q15M PRN IV DECREASED GLUCOSE; Start 12/28/16 at 17:00 Glucagon (Glucagen) 1 mg Q15M PRN IM DECREASED GLUCOSE; Start 12/28/16 at 17: 00 Glucose (Glutose) 15 gm Q15M PRN BUCCAL DECREASED GLUCOSE; Start 12/28/16 at 17:00 Folic Acid (Folic Acid) 1 mg DAILY PO Last administered on 01/03/17 08:35; Admin Dose 1 MG; Start 12/29/16 at 09:00 Dronabinol (Marinol) 2.5 mg DAILY PO Last administered on 01/03/17 08:35; Admin Dose 2.5 MG; Start 12/30/16 at 12:30 Nicotine (Nicoderm 21 Mg/ 24hr) 1 patch DAILY TRANSDERM Last administered on 08:23; Admin Dose 1 PATCH; Start 12/30/16 at 12:30 Prednisone (Prednisone) 60 mg DAILY PO Last administered on 01/03/17 08:37; Admin Dose 60 MG; Start 01/03/17 at 09:00 SCAR FISCHER MD Jan 03, 2017 15:11
[2017-01-03 15:48] VITALS: BP 102/51; RESP 20
[2017-01-03 20:23] VITALS: BP 114/60; RESP 20
--- NOTE | 2017-01-03 20:57 | DS ---
Date/Time of Note Date/Time of Note DATE: 01/05/17 TIME: 20:56 Discharge Summary Admission/Discharge Info Admit Date/Time Dec 28, 2016 at 15:01 Discharge Date/Time Patient Condition: Stable Consults Dr Bucio, hematology, Dr Barakat, psychiatry Hospital Course see DC summary by dr Appiah [place] Meds Active Scripts Prednisone* (Prednisone*) 5 Mg Tab, 5 MG PO DAILY, #100 TAB Prov:DIMITRIS APPIAH MD 01/09/17 Folic Acid* (Folic Acid*) 1 Mg Tablet, 1 MG PO DAILY for 14 Days, TAB Prov:DIMITRIS APPIAH MD 01/09/17 Famotidine* (Famotidine*) 20 Mg Tablet, 20 MG PO DAILY for 28 Days, TAB Prov:DIMITRIS APPIAH MD 01/09/17 Dronabinol* (Dronabinol*) 2.5 Mg Capsule, 2.5 MG PO DAILY for 10 Days, CAP Prov:DIMITRIS APPIAH MD 01/09/17 Aripiprazole* (Abilify*) 2 Mg Tablet, 2 MG PO DAILY for 28 Days, TAB Prov:DIMITRIS APPIAH MD 01/09/17 Nicotine* (Nicotine* Patch) 21 mg/day Patch, 1 PATCH TRANSDERM DAILY for 10 Days Prov:DIMITRIS APPIAH MD 01/09/17 Primary Care Provider Care Physician No Primary Time spent on discharge: < 30 minutes Pending Labs Laboratory Tests Test 01/03/17 04:45 01/03/17 08:42 01/03/17 12:50 01/03/17 17:42 White Blood Count 15.510^3/ul (4.8-10.8) Red Blood Count 5.6310^6/ul (4.70-6.10) Hemoglobin 16.0g/dl (14.0-18.0) Hematocrit 46.9% (42.0-52.0) Mean Corpuscular Volume 83.3fl (82.0-101.0) Mean Corpuscular Hemoglobin 28.4pg (29.0-33.0) Mean Corpuscular Hemoglobin Concent 34.1g/dl (32.0-37.0) Red Cell Distribution Width 12.3% (11.5-14.5) Platelet Count 3810^3/UL (140-415) Mean Platelet Volume 12.6fl (7.4-10.4) Neutrophils % 63.1% (39.0-77.0) Lymphocytes % 21.9% (15.0-51.0) Monocytes % 10.8% (0.0-11.0) Eosinophils % 0.3% (0.0-7.0) Basophils % 0.5% (0.0-2.0) Nucleated Red Blood Cells % 0.0/100WBC (0.0-0.0) Neutrophils # 9.810^3/ul (1.6-7.5) Lymphocytes # 3.410^3/ul (0.8-2.9) Monocytes # 1.710^3/ul (0.3-0.9) Eosinophils # 0.010^3/ul (0.0-0.5) Basophils # 0.110^3/ul (0.0-0.1) Nucleated Red Blood Cells # 0.010^3/ul (0.0-0.0) Bedside Glucose 89mg/dL (70-220) 95mg/dL (70-220) 94mg/dL (70-220) Test 01/03/17 20:01 Bedside Glucose 105mg/dL (70-220) SABRINA RONDON Jan 03, 2017 20:57 Nucleated Red Blood Cells # 0.010^3/ul (0.0-0.0) Bedside Glucose 89mg/dL (70-220) 95mg/dL (70-220) 94mg/dL (70-220) Test 01/03/17 20:01 Bedside Glucose 105mg/dL (70-220) SABRINA RONDON Jan 03, 2017 20:57
[2017-01-04] MEDS: ACCU-CHEK XX SCH (02:00)
[2017-01-04 02:01] VITALS: BP 116/62; RESP 18
[2017-01-04 06:27] LABS: ABNORMAL IP MESSAGE 1; HEMOGLOBIN 15.7 g/dl (14.0-18.0); MEAN CORPUSCULAR HEMOGLOBIN 28.8 pg (29.0-33.0); MEAN CORPUSCULAR HGB CONC 34.9 g/dl (32.0-37.0); MEAN CORPUSCULAR VOLUME 82.6 fl (82.0-101.0); MEAN PLATELET VOLUME 13.3 fl (7.4-10.4); POSITIVE DIFF @See below; RED BLOOD COUNT 5.45 10^6/ul (4.70-6.10); RED CELL DISTRIBUTION WIDTH 12.6 % (11.5-14.5)
[2017-01-04 06:40] LABS: PLATELET COUNT 18 10^3/UL (140-415)
[2017-01-04 08:03] VITALS: BP 100/59; RESP 19
[2017-01-04 08:29] LABS: ANISOCYTOSIS 1+ (0-0); MONOCYTES % (M) 10 % (0-11); MYELOCYTES % (M) 1 % (0-0); PLATELET ESTIMATE SIG DECREASED; REACTIVE LYMPHOCYTES% (M) 8 % (0-0)
[2017-01-04] MEDS: DRONABINOL 2.5 MG CAP PO SCH (08:30)
[2017-01-04] MEDS: predniSONE 20 MG TAB PO SCH (08:30)
[2017-01-04] MEDS: FAMOTIDINE 20 MG TAB PO SCH (08:31)
[2017-01-04] MEDS: ARIPIPRAZOLE 2 MG TAB PO SCH (08:31)
[2017-01-04] MEDS: FOLIC ACID 1 MG TAB PO SCH (08:31)
[2017-01-04] MEDS: NICOTINE (21 MG/24 HR) PATCH TRANSDERM SCH (08:32)
[2017-01-04] MEDS: INSULIN ASPART [NOVOLOG] 3 ML PEN SC SCH ×4 (08:50→21:00)
--- NOTE | 2017-01-04 13:55 | PN ---
SABRINA LACKEY 01/04/17 1354: Date/Time of Note Date/Time of Note DATE: 01/04/17 TIME: 13:53 Assessment/Plan VTE Prophylaxis VTE Prophylaxis Intervention: ambulation Lines/Catheters IV [facility]ter Type (from [facility]): Saline Lock Urinary Cath still in place: No Assessment/Plan Chief Complaint/Hosp Course 1. Severe thrombocytopenia with a history of idiopathic thrombocytopenic purpura, worse. pt is ON IV solumedrol. 2. Depression with suicidal ideation, but no plan, better. 3. Marijuana and amphetamine use with hallucinations. 4. Homelessness. 5. Smoker. Problems: Assessment/Plan 1. continue Abilify Subjective 24 Hr Interval Summary Constitutional: improved, no complaints Gastrointestinal: no complaints Genitourinary: no complaints Exam/Review of Systems Vital Signs Vitals Vital Signs Date Time Temp Pulse Resp B/P Pulse Ox O2 Delivery O2 Flow Rate FiO2 01/04/17 08:03 98.2 52 19 100/59 98 Intake and Output 01/03/17 01/03/17 01/04/17 15:00 23:00 07:00 Intake Total 1680 ml 720 ml Balance 1680 ml 720 ml Exam Constitutional: alert, oriented Neck: supple Respiratory: clear to auscultation Results Result Diagram: 01/04/17 0600 Results 24 hrs Laboratory Tests Test 01/03/17 17:42 01/03/17 20:01 01/04/17 06:00 01/04/17 08:51 Bedside Glucose 94 105 83 White Blood Count 11.0 #H Red Blood Count 5.45 Hemoglobin 15.7 Hematocrit 45.0 Mean Corpuscular Volume 82.6 Mean Corpuscular Hemoglobin 28.8 L Mean Corpuscular Hemoglobin Concent 34.9 Red Cell Distribution Width 12.6 Platelet Count 18 #*L Mean Platelet Volume 13.3 H Neutrophils % Segmented Neutrophils % (Manual) 48 Band Neutrophils % (Manual) 2 Lymphocytes % Lymphocytes % (Manual) 32 Reactive Lymphocytes % (Manual) 8 H Monocytes % Monocytes % (Manual) 10 Eosinophils % Basophils % Myelocytes % (Manual) 1 H Nucleated Red Blood Cells % 0.0 Neutrophils # Neutrophils # (Manual) 5.3 Band Neutrophils # 0.2 Absolute Lymphocytes (Manual) 3.5 H Lymphocytes # Reactive Lymphocytes # 0.8 H Monocytes # Absolute Monocytes (Manual) 1.1 H Eosinophils # Basophils # Myelocytes # 0.1 H Nucleated Red Blood Cells # Platelet Estimate SIG DECREASED Anisocytosis 1+ Test 01/04/17 12:39 Bedside Glucose 114 Medications Medications Current Medications Ondansetron HCl (Zofran Inj) 4 mg Q6H PRN IV NAUSEA AND/OR VOMITING; Start at 16:30 Metoclopramide HCl (Reglan) 10 mg Q6H PRN IV NAUSEA AND/OR VOMITING; Start at 16:30 Acetaminophen (Tylenol Tab) 650 mg Q6H PRN PO PAIN LEVEL 1-3 OR FEVER Last administered on 12/31/16 16:40; Admin Dose 650 MG; Start 12/28/16 at 16:30 Ibuprofen (Motrin) 600 mg Q6H PRN PO PAIN LEVEL 1-3; Start 12/28/16 at 16:30 Acetaminophen/ Hydrocodone Bitart ([place] (5/325)) 1 tab Q6H PRN PO MODERATE PAIN LEVEL 4-6; Start 12/28/16 at 16:30 Morphine Sulfate (morphine) 2 mg Q4H PRN IV SEVERE PAIN LEVEL 7-10; Start at 16:30 Docusate Sodium (Colace) 100 mg Q12H PRN PO CONSTIPATION; Start 12/28/16 at 16 :30 Famotidine (Pepcid) 20 mg DAILY PO Last administered on 01/04/17 08:31; Admin Dose 20 MG; Start 12/29/16 at 09:00 Diagnostic Test (Pha) (Accu-Chek) 1 ea 02 XX ; Start 12/29/16 at 02:00 Lorazepam (Ativan) 1 mg Q4 PRN IV agitation; Start 12/28/16 at 16:30 Miscellaneous Information 1 ea NOTE XX ; Start 12/28/16 at 17:00 Glucose (Glutose) 15 gm Q15M PRN PO DECREASED GLUCOSE; Start 12/28/16 at 17:00 Glucose (Glutose) 22.5 gm Q15M PRN PO DECREASED GLUCOSE; Start 12/28/16 at 17: 00 Dextrose (D50w Syringe) 25 ml Q15M PRN IV DECREASED GLUCOSE; Start 12/28/16 at 17:00 Dextrose (D50w Syringe) 50 ml Q15M PRN IV DECREASED GLUCOSE; Start 12/28/16 at 17:00 Glucagon (Glucagen) 1 mg Q15M PRN IM DECREASED GLUCOSE; Start 12/28/16 at 17: 00 Glucose (Glutose) 15 gm Q15M PRN BUCCAL DECREASED GLUCOSE; Start 12/28/16 at 17:00 Folic Acid (Folic Acid) 1 mg DAILY PO Last administered on 01/04/17 08:31; Admin Dose 1 MG; Start 12/29/16 at 09:00 Dronabinol (Marinol) 2.5 mg DAILY PO Last administered on 01/04/17 08:30; Admin Dose 2.5 MG; Start 12/30/16 at 12:30 Nicotine (Nicoderm 21 Mg/ 24hr) 1 patch DAILY TRANSDERM Last administered on 08:32; Admin Dose 1 PATCH; Start 12/30/16 at 12:30 Aripiprazole (Abilify) 2 mg DAILY PO Last administered on 01/04/17 08:31; Admin Dose 2 MG; Start 01/04/17 at 09:00 Methylprednisolone Sodium Succinate (Solu-Medrol) 100 mg Q12 IV ; Start at 21:00 BENJAMIN STOUT MD 01/04/17 1500: Assessment/Plan Assessment/Plan Assessment/Plan Plt count dropped again to 19, restarted iv solumedrol Exam/Review of Systems Results Result Diagram: 01/04/17 0600 SABRINA RONDON Jan 04, 2017 13:54 BENJAMIN STOUT MD Jan 04, 2017 15:00
[2017-01-04 20:45] VITALS: BP 122/74; RESP 20
[2017-01-04] MEDS: METHYLPREDNISOLONE 125 MG INJ IV SCH (21:27)
[2017-01-05] MEDS: ACCU-CHEK XX SCH (02:00)
[2017-01-05 02:01] VITALS: BP 117/74; RESP 22
[2017-01-05 05:18] LABS: ABNORMAL IP MESSAGE 1; BASOPHILS % 0.2 % (0.0-2.0); HEMATOCRIT 45.5 % (42.0-52.0); HEMOGLOBIN 16.3 g/dl (14.0-18.0); LYMPHOCYTES # 1.4 10^3/ul (0.8-2.9); LYMPHOCYTES % 13.6 % (15.0-51.0); MEAN CORPUSCULAR HEMOGLOBIN 28.8 pg (29.0-33.0); MEAN CORPUSCULAR HGB CONC 35.8 g/dl (32.0-37.0); MEAN CORPUSCULAR VOLUME 80.5 fl (82.0-101.0); MEAN PLATELET VOLUME 11.3 fl (7.4-10.4); MONOCYTE # 0.3 10^3/ul (0.3-0.9); MONOCYTES % 2.6 % (0.0-11.0); NEUTROPHIL # 8.3 10^3/ul (1.6-7.5); POSITIVE DIFF @See below; RED BLOOD COUNT 5.65 10^6/ul (4.70-6.10); RED CELL DISTRIBUTION WIDTH 12.2 % (11.5-14.5); WHITE BLOOD COUNT 10.2 10^3/ul (4.8-10.8)
[2017-01-05 05:37] LABS: PLATELET COUNT 14 10^3/UL (140-415)
[2017-01-05] MEDS: INSULIN ASPART [NOVOLOG] 3 ML PEN SC SCH ×4 (07:50→20:08)
[2017-01-05 08:39] VITALS: BP 122/70; RESP 20
[2017-01-05] MEDS: FOLIC ACID 1 MG TAB PO SCH (08:43)
[2017-01-05] MEDS: DRONABINOL 2.5 MG CAP PO SCH (08:43)
[2017-01-05] MEDS: ARIPIPRAZOLE 2 MG TAB PO SCH (08:43)
[2017-01-05] MEDS: FAMOTIDINE 20 MG TAB PO SCH (08:43)
[2017-01-05] MEDS: METHYLPREDNISOLONE 125 MG INJ IV SCH ×2 (08:44→20:07)
[2017-01-05] MEDS: NICOTINE (21 MG/24 HR) PATCH TRANSDERM SCH (08:47)
--- NOTE | 2017-01-05 12:54 | PN ---
SABRINA LACKEY 01/05/17 1254: Date/Time of Note Date/Time of Note DATE: 01/05/17 TIME: 12:53 Assessment/Plan VTE Prophylaxis VTE Prophylaxis Intervention: ambulation Lines/Catheters IV [facility]from [facility] Saline Lock Urinary Cath still in place: No Assessment/Plan Chief Complaint/Hosp Course 1. Severe thrombocytopenia with a history of idiopathic thrombocytopenic purpura, worse. pt is ON IV solumedrol, worse today. 2. Depression with suicidal ideation, but no plan, better. 3. Marijuana and amphetamine use with hallucinations. 4. Homelessness. 5. Smoker. Problems: Assessment/Plan 1. continue treatment Subjective 24 Hr Interval Summary Constitutional: improved Exam/Review of Systems Vital Signs Vitals Vital Signs Date Time Temp Pulse Resp B/P Pulse Ox O2 Delivery O2 Flow Rate FiO2 01/05/17 08:39 97.8 59 20 122/70 100 Intake and Output 01/04/17 01/04/17 01/05/17 15:00 23:00 07:00 Intake Total 740 ml 1050 ml Output Total 1400 ml Balance 740 ml -350 ml Exam Constitutional: alert, oriented Respiratory: clear to auscultation Cardiovascular: regular rate and rhythm Results Result Diagram: 01/05/17 0438 Results 24 hrs Laboratory Tests Test 01/04/17 17:48 01/04/17 21:26 01/05/17 04:38 01/05/17 08:39 Bedside Glucose 109 95 116 White Blood Count 10.2 Red Blood Count 5.65 Hemoglobin 16.3 Hematocrit 45.5 Mean Corpuscular Volume 80.5 L Mean Corpuscular Hemoglobin 28.8 L Mean Corpuscular Hemoglobin Concent 35.8 Red Cell Distribution Width 12.2 Platelet Count 14 #*L Mean Platelet Volume 11.3 H Neutrophils % 81.0 H Lymphocytes % 13.6 L Monocytes % 2.6 Eosinophils % 0.0 Basophils % 0.2 Nucleated Red Blood Cells % 0.0 Neutrophils # 8.3 H Lymphocytes # 1.4 Monocytes # 0.3 Eosinophils # 0.0 Basophils # 0.0 Nucleated Red Blood Cells # 0.0 Test 01/05/17 12:35 Bedside Glucose 108 Medications Medications Current Medications Ondansetron HCl (Zofran Inj) 4 mg Q6H PRN IV NAUSEA AND/OR VOMITING; Start at 16:30 Metoclopramide HCl (Reglan) 10 mg Q6H PRN IV NAUSEA AND/OR VOMITING; Start at 16:30 Acetaminophen (Tylenol Tab) 650 mg Q6H PRN PO PAIN LEVEL 1-3 OR FEVER Last administered on 12/31/16 16:40; Admin Dose 650 MG; Start 12/28/16 at 16:30 Ibuprofen (Motrin) 600 mg Q6H PRN PO PAIN LEVEL 1-3; Start 12/28/16 at 16:30 Acetaminophen/ Hydrocodone Bitart ([place] (5/325)) 1 tab Q6H PRN PO MODERATE PAIN LEVEL 4-6; Start 12/28/16 at 16:30 Morphine Sulfate (morphine) 2 mg Q4H PRN IV SEVERE PAIN LEVEL 7-10; Start at 16:30 Docusate Sodium (Colace) 100 mg Q12H PRN PO CONSTIPATION; Start 12/28/16 at 16 :30 Famotidine (Pepcid) 20 mg DAILY PO Last administered on 01/05/17 08:43; Admin Dose 20 MG; Start 12/29/16 at 09:00 Diagnostic Test (Pha) (Accu-Chek) 1 ea 02 XX ; Start 12/29/16 at 02:00 Lorazepam (Ativan) 1 mg Q4 PRN IV agitation; Start 12/28/16 at 16:30 Miscellaneous Information 1 ea NOTE XX ; Start 12/28/16 at 17:00 Glucose (Glutose) 15 gm Q15M PRN PO DECREASED GLUCOSE; Start 12/28/16 at 17:00 Glucose (Glutose) 22.5 gm Q15M PRN PO DECREASED GLUCOSE; Start 12/28/16 at 17: 00 Dextrose (D50w Syringe) 25 ml Q15M PRN IV DECREASED GLUCOSE; Start 12/28/16 at 17:00 Dextrose (D50w Syringe) 50 ml Q15M PRN IV DECREASED GLUCOSE; Start 12/28/16 at 17:00 Glucagon (Glucagen) 1 mg Q15M PRN IM DECREASED GLUCOSE; Start 12/28/16 at 17: 00 Glucose (Glutose) 15 gm Q15M PRN BUCCAL DECREASED GLUCOSE; Start 12/28/16 at 17:00 Folic Acid (Folic Acid) 1 mg DAILY PO Last administered on 01/05/17 08:43; Admin Dose 1 MG; Start 12/29/16 at 09:00 Dronabinol (Marinol) 2.5 mg DAILY PO Last administered on 01/05/17 08:43; Admin Dose 2.5 MG; Start 12/30/16 at 12:30 Nicotine (Nicoderm 21 Mg/ 24hr) 1 patch DAILY TRANSDERM Last administered on 08:47; Admin Dose 1 PATCH; Start 12/30/16 at 12:30 Aripiprazole (Abilify) 2 mg DAILY PO Last administered on 01/05/17 08:43; Admin Dose 2 MG; Start 01/04/17 at 09:00 Methylprednisolone Sodium Succinate (Solu-Medrol) 100 mg Q12 IV Last administered on 01/05/17 08:44; Admin Dose 100 MG; Start 01/04/17 at 21:00 BENJAMIN STOUT MD 01/05/17 1539: Assessment/Plan Assessment/Plan Assessment/Plan Spoke to Dr dan, will start on IVIG 1G/KG X 3 days as plt count is dropped to 14 inspite of iv solumedrol Exam/Review of Systems Results Result Diagram: 01/05/17 0438 SABRINA RONDON Jan 05, 2017 12:54 BENJAMIN STOUT MD Jan 05, 2017 15:39
[2017-01-05] MEDS ORDERED: WATER STERILE FOR IV SCH ×4 (17:00)
[2017-01-05] MEDS ORDERED: IMMUNE GLOBULIN IV SCH ×4 (17:00)
[2017-01-05 20:03] VITALS: BP 140/75; PULSE 98; RESP 18
[2017-01-05] MEDS: WATER STERILE FOR IV SCH (21:17)
[2017-01-05] MEDS: IMMUNE GLOBULIN IV SCH (21:17)
[2017-01-06] MEDS: ACCU-CHEK XX SCH (02:00)
[2017-01-06 02:49] VITALS: BP 127/71; RESP 85
[2017-01-06 05:13] LABS: ABNORMAL IP MESSAGE 1; BASOPHILS % 0.2 % (0.0-2.0); HEMATOCRIT 44.2 % (42.0-52.0); HEMOGLOBIN 15.2 g/dl (14.0-18.0); LYMPHOCYTES # 1.2 10^3/ul (0.8-2.9); LYMPHOCYTES % 9.6 % (15.0-51.0); MEAN CORPUSCULAR HEMOGLOBIN 28.1 pg (29.0-33.0); MEAN CORPUSCULAR HGB CONC 34.4 g/dl (32.0-37.0); MEAN CORPUSCULAR VOLUME 81.7 fl (82.0-101.0); MEAN PLATELET VOLUME 12.9 fl (7.4-10.4); MONOCYTE # 0.8 10^3/ul (0.3-0.9); MONOCYTES % 6.2 % (0.0-11.0); NEUTROPHIL # 10.4 10^3/ul (1.6-7.5); NEUTROPHILS % 81.9 % (39.0-77.0); PLATELET COUNT 36 10^3/UL (140-415); POSITIVE DIFF @See below; RED BLOOD COUNT 5.41 10^6/ul (4.70-6.10); RED CELL DISTRIBUTION WIDTH 12.3 % (11.5-14.5); WHITE BLOOD COUNT 12.7 10^3/ul (4.8-10.8)
[2017-01-06] MEDS: INSULIN ASPART [NOVOLOG] 3 ML PEN SC SCH ×4 (07:50→20:38)
[2017-01-06 07:56] VITALS: BP 118/74; RESP 18
[2017-01-06] MEDS: FOLIC ACID 1 MG TAB PO SCH (08:38)
[2017-01-06] MEDS: METHYLPREDNISOLONE 125 MG INJ IV SCH ×2 (08:38→20:38)
[2017-01-06] MEDS: FAMOTIDINE 20 MG TAB PO SCH (08:38)
[2017-01-06] MEDS: DRONABINOL 2.5 MG CAP PO SCH (08:38)
[2017-01-06] MEDS: ARIPIPRAZOLE 2 MG TAB PO SCH (08:38)
[2017-01-06] MEDS: NICOTINE (21 MG/24 HR) PATCH TRANSDERM SCH (08:39)
[2017-01-06] MEDS: WATER STERILE FOR IV SCH (09:46)
[2017-01-06] MEDS: IMMUNE GLOBULIN IV SCH (09:46)
--- NOTE | 2017-01-06 12:29 | PN ---
SABRINA RONDON 01/06/17 1229: Date/Time of Note Date/Time of Note DATE: 01/06/17 TIME: 12:28 Assessment/Plan VTE Prophylaxis VTE Prophylaxis Intervention: ambulation Lines/Catheters IV [facility] (from [facility] Peripheral IV Urinary Cath still in place: No Assessment/Plan Chief Complaint/Hosp Course 1. Severe thrombocytopenia with a history of idiopathic thrombocytopenic purpura, worse. pt is ON IV solumedrol, worse today. 2. Depression with suicidal ideation, but no plan, better. 3. Marijuana and amphetamine use with hallucinations. 4. Homelessness. 5. Smoker. Problems: Assessment/Plan 1. Started on Immunoglobulin. 2. Continue treatment Subjective 24 Hr Interval Summary Constitutional: improved, no complaints Exam/Review of Systems Vital Signs Vitals Vital Signs Date Time Temp Pulse Resp B/P Pulse Ox O2 Delivery O2 Flow Rate FiO2 01/06/17 07:56 97.5 68 18 118/74 99 01/05/17 20:03 Room Air Intake and Output 01/05/17 01/05/17 01/06/17 15:00 23:00 07:00 Intake Total 860 ml 480 ml Balance 860 ml 480 ml Exam Constitutional: alert, oriented Respiratory: clear to auscultation Cardiovascular: regular rate and rhythm Results Result Diagram: 01/06/17 0436 Results 24 hrs Laboratory Tests Test 01/05/17 12:35 01/05/17 17:53 01/05/17 20:07 01/06/17 04:36 Bedside Glucose 108 142 137 White Blood Count 12.7 #H Red Blood Count 5.41 Hemoglobin 15.2 Hematocrit 44.2 Mean Corpuscular Volume 81.7 L Mean Corpuscular Hemoglobin 28.1 L Mean Corpuscular Hemoglobin Concent 34.4 Red Cell Distribution Width 12.3 Platelet Count 36 #L Mean Platelet Volume 12.9 H Neutrophils % 81.9 H Lymphocytes % 9.6 L Monocytes % 6.2 Eosinophils % 0.0 Basophils % 0.2 Nucleated Red Blood Cells % 0.0 Neutrophils # 10.4 H Lymphocytes # 1.2 Monocytes # 0.8 Eosinophils # 0.0 Basophils # 0.0 Nucleated Red Blood Cells # 0.0 Test 01/06/17 08:37 01/06/17 12:22 Bedside Glucose 110 98 Medications Medications Current Medications Ondansetron HCl (Zofran Inj) 4 mg Q6H PRN IV NAUSEA AND/OR VOMITING; Start at 16:30 Metoclopramide HCl (Reglan) 10 mg Q6H PRN IV NAUSEA AND/OR VOMITING; Start at 16:30 Acetaminophen (Tylenol Tab) 650 mg Q6H PRN PO PAIN LEVEL 1-3 OR FEVER Last administered on 12/31/16 16:40; Admin Dose 650 MG; Start 12/28/16 at 16:30 Ibuprofen (Motrin) 600 mg Q6H PRN PO PAIN LEVEL 1-3; Start 12/28/16 at 16:30 Acetaminophen/ Hydrocodone Bitart ([place] (5/325)) 1 tab Q6H PRN PO MODERATE PAIN LEVEL 4-6; Start 12/28/16 at 16:30 Morphine Sulfate (morphine) 2 mg Q4H PRN IV SEVERE PAIN LEVEL 7-10; Start at 16:30 Docusate Sodium (Colace) 100 mg Q12H PRN PO CONSTIPATION; Start 12/28/16 at 16 :30 Famotidine (Pepcid) 20 mg DAILY PO Last administered on 01/06/17 08:38; Admin Dose 20 MG; Start 12/29/16 at 09:00 Diagnostic Test (Pha) (Accu-Chek) 1 ea 02 XX ; Start 12/29/16 at 02:00 Lorazepam (Ativan) 1 mg Q4 PRN IV agitation; Start 12/28/16 at 16:30 Miscellaneous Information 1 ea NOTE XX ; Start 12/28/16 at 17:00 Glucose (Glutose) 15 gm Q15M PRN PO DECREASED GLUCOSE; Start 12/28/16 at 17:00 Glucose (Glutose) 22.5 gm Q15M PRN PO DECREASED GLUCOSE; Start 12/28/16 at 17: 00 Dextrose (D50w Syringe) 25 ml Q15M PRN IV DECREASED GLUCOSE; Start 12/28/16 at 17:00 Dextrose (D50w Syringe) 50 ml Q15M PRN IV DECREASED GLUCOSE; Start 12/28/16 at 17:00 Glucagon (Glucagen) 1 mg Q15M PRN IM DECREASED GLUCOSE; Start 12/28/16 at 17: 00 Glucose (Glutose) 15 gm Q15M PRN BUCCAL DECREASED GLUCOSE; Start 12/28/16 at 17:00 Folic Acid (Folic Acid) 1 mg DAILY PO Last administered on 01/06/17 08:38; Admin Dose 1 MG; Start 12/29/16 at 09:00 Dronabinol (Marinol) 2.5 mg DAILY PO Last administered on 01/06/17 08:38; Admin Dose 2.5 MG; Start 12/30/16 at 12:30 Nicotine (Nicoderm 21 Mg/ 24hr) 1 patch DAILY TRANSDERM Last administered on 08:39; Admin Dose 1 PATCH; Start 12/30/16 at 12:30 Aripiprazole (Abilify) 2 mg DAILY PO Last administered on 01/06/17 08:38; Admin Dose 2 MG; Start 01/04/17 at 09:00 Methylprednisolone Sodium Succinate 100 mg 100 mg Q12 IV Last administered on 01/06/17 08:38; Admin Dose 100 MG; Start 01/04/17 at 21:00 Immune Globulin/ Sterile Water (Carimune Nf/ Water Sterile For Inj) 1,000 ml @ 120 mls/hr Q12H IV Last administered on 01/06/17 09:46; Admin Dose 120 MLS/HR ; Start 01/05/17 at 21:00; Stop 01/08/17 at 17:19 BENJAMIN STOUT MD 01/06/17 1635: Assessment/Plan Assessment/Plan Assessment/Plan Plt improved today c/w IVIG 2/3 Exam/Review of Systems Results Result Diagram: 01/06/17 0436 SABRINA RONDON Jan 06, 2017 12:29 BENJAMIN STOUT MD Jan 06, 2017 16:35
[2017-01-06 14:00] VITALS: BP 128/74; RESP 18
[2017-01-06 19:25] VITALS: BP 124/72; PULSE 92; RESP 18
[2017-01-06] MEDS ORDERED: WATER STERILE FOR IV SCH (21:00)
[2017-01-06] MEDS ORDERED: IMMUNE GLOBULIN IV SCH (21:00)
[2017-01-07] MEDS: ACCU-CHEK XX SCH (01:10)
[2017-01-07 05:41] LABS: ABNORMAL IP MESSAGE 1; BASOPHILS % 0.1 % (0.0-2.0); HEMATOCRIT 43.3 % (42.0-52.0); HEMOGLOBIN 15.4 g/dl (14.0-18.0); LYMPHOCYTES # 1.2 10^3/ul (0.8-2.9); LYMPHOCYTES % 11.5 % (15.0-51.0); MEAN CORPUSCULAR HEMOGLOBIN 29.2 pg (29.0-33.0); MEAN CORPUSCULAR HGB CONC 35.6 g/dl (32.0-37.0); MEAN PLATELET VOLUME 11.3 fl (7.4-10.4); MONOCYTE # 0.4 10^3/ul (0.3-0.9); MONOCYTES % 4.4 % (0.0-11.0); NEUTROPHIL # 8.2 10^3/ul (1.6-7.5); NEUTROPHILS % 81.9 % (39.0-77.0); PLATELET COUNT 78 10^3/UL (140-415); POSITIVE DIFF @See below; RED BLOOD COUNT 5.28 10^6/ul (4.70-6.10); RED CELL DISTRIBUTION WIDTH 12.3 % (11.5-14.5); WHITE BLOOD COUNT 10.1 10^3/ul (4.8-10.8)
[2017-01-07 06:13] LABS: CALCIUM 9.4 mg/dl (8.4-10.2); CREATININE 0.73 mg/dl (0.61-1.24); POTASSIUM 4.2 mmol/L (3.5-5.1)
[2017-01-07 07:50] VITALS: BP 119/67; RESP 18
[2017-01-07] MEDS: INSULIN ASPART [NOVOLOG] 3 ML PEN SC SCH ×2 (07:50→11:40)
[2017-01-07] MEDS: METHYLPREDNISOLONE 125 MG INJ IV SCH ×2 (08:30→20:16)
[2017-01-07] MEDS: FOLIC ACID 1 MG TAB PO SCH (08:31)
[2017-01-07] MEDS: FAMOTIDINE 20 MG TAB PO SCH (08:31)
[2017-01-07] MEDS: ARIPIPRAZOLE 2 MG TAB PO SCH (08:31)
[2017-01-07] MEDS: NICOTINE (21 MG/24 HR) PATCH TRANSDERM SCH (08:35)
[2017-01-07] MEDS: DRONABINOL 2.5 MG CAP PO SCH (10:17)
[2017-01-07] MEDS: IMMUNE GLOBULIN IV SCH (11:37)
[2017-01-07] MEDS: WATER STERILE FOR IV SCH (11:37)
--- NOTE | 2017-01-07 12:18 | PN ---
SABRINA RONDON 01/07/17 1218: Date/Time of Note Date/Time of Note DATE: 01/07/17 TIME: 12:17 Assessment/Plan VTE Prophylaxis VTE Prophylaxis Intervention: ambulation Lines/Catheters IV [facility] Type (from [facility] Saline Lock Urinary Cath still in place: No Assessment/Plan Chief Complaint/Hosp Course 1. Severe thrombocytopenia with a history of idiopathic thrombocytopenic purpura, worse. pt is ON IV immunoglobulin, better today. 2. Depression with suicidal ideation, but no plan, better. 3. Marijuana and amphetamine use with hallucinations. 4. Homelessness. 5. Smoker. Problems: Assessment/Plan 1. continue IV immunoglobulins. Subjective 24 Hr Interval Summary Constitutional: improved, no complaints Exam/Review of Systems Vital Signs Vitals Vital Signs Date Time Temp Pulse Resp B/P Pulse Ox O2 Delivery O2 Flow Rate FiO2 01/07/17 07:50 97.6 61 18 119/67 98 01/06/17 19:25 Room Air Intake and Output 01/06/17 01/06/17 01/07/17 14:59 22:59 06:59 Intake Total 2100 ml 1200 ml Output Total 1300 ml 1100 ml Balance 800 ml 100 ml Exam Constitutional: alert, oriented Cardiovascular: regular rate and rhythm Gastrointestinal: soft Results Result Diagram: 01/07/17 0432 01/07/17 0432 Results 24 hrs Laboratory Tests Test 01/06/17 12:22 01/06/17 18:03 01/06/17 20:37 01/07/17 04:32 Bedside Glucose 98 105 179 White Blood Count 10.1 # Red Blood Count 5.28 Hemoglobin 15.4 Hematocrit 43.3 Mean Corpuscular Volume 82.0 Mean Corpuscular Hemoglobin 29.2 Mean Corpuscular Hemoglobin Concent 35.6 Red Cell Distribution Width 12.3 Platelet Count 78 #L Mean Platelet Volume 11.3 H Neutrophils % 81.9 H Lymphocytes % 11.5 L Monocytes % 4.4 Eosinophils % 0.0 Basophils % 0.1 Nucleated Red Blood Cells % 0.0 Neutrophils # 8.2 H Lymphocytes # 1.2 Monocytes # 0.4 Eosinophils # 0.0 Basophils # 0.0 Nucleated Red Blood Cells # 0.0 Sodium Level 141 Potassium Level 4.2 Chloride Level 101 Carbon Dioxide Level 31 Anion Gap 13 Blood Urea Nitrogen 16 Creatinine 0.73 Glucose Level 107 Calcium Level 9.4 Test 01/07/17 08:35 01/07/17 11:45 Bedside Glucose 95 91 Medications Medications Current Medications Ondansetron HCl (Zofran Inj) 4 mg Q6H PRN IV NAUSEA AND/OR VOMITING; Start at 16:30 Metoclopramide HCl (Reglan) 10 mg Q6H PRN IV NAUSEA AND/OR VOMITING; Start at 16:30 Acetaminophen (Tylenol Tab) 650 mg Q6H PRN PO PAIN LEVEL 1-3 OR FEVER Last administered on 12/31/16 16:40; Admin Dose 650 MG; Start 12/28/16 at 16:30 Ibuprofen (Motrin) 600 mg Q6H PRN PO PAIN LEVEL 1-3; Start 12/28/16 at 16:30 Acetaminophen/ Hydrocodone Bitart ([place] (5/325)) 1 tab Q6H PRN PO MODERATE PAIN LEVEL 4-6; Start 12/28/16 at 16:30 Morphine Sulfate (morphine) 2 mg Q4H PRN IV SEVERE PAIN LEVEL 7-10; Start at 16:30 Docusate Sodium (Colace) 100 mg Q12H PRN PO CONSTIPATION; Start 12/28/16 at 16 :30 Famotidine (Pepcid) 20 mg DAILY PO Last administered on 01/07/17 08:31; Admin Dose 20 MG; Start 12/29/16 at 09:00 Diagnostic Test (Pha) (Accu-Chek) 1 ea 02 XX ; Start 12/29/16 at 02:00 Lorazepam (Ativan) 1 mg Q4 PRN IV agitation; Start 12/28/16 at 16:30 Miscellaneous Information 1 ea NOTE XX ; Start 12/28/16 at 17:00 Glucose (Glutose) 15 gm Q15M PRN PO DECREASED GLUCOSE; Start 12/28/16 at 17:00 Glucose (Glutose) 22.5 gm Q15M PRN PO DECREASED GLUCOSE; Start 12/28/16 at 17: 00 Dextrose (D50w Syringe) 25 ml Q15M PRN IV DECREASED GLUCOSE; Start 12/28/16 at 17:00 Dextrose (D50w Syringe) 50 ml Q15M PRN IV DECREASED GLUCOSE; Start 12/28/16 at 17:00 Glucagon (Glucagen) 1 mg Q15M PRN IM DECREASED GLUCOSE; Start 12/28/16 at 17: 00 Glucose (Glutose) 15 gm Q15M PRN BUCCAL DECREASED GLUCOSE; Start 12/28/16 at 17:00 Folic Acid (Folic Acid) 1 mg DAILY PO Last administered on 01/07/17 08:31; Admin Dose 1 MG; Start 12/29/16 at 09:00 Dronabinol (Marinol) 2.5 mg DAILY PO Last administered on 01/07/17 10:17; Admin Dose 2.5 MG; Start 12/30/16 at 12:30 Nicotine (Nicoderm 21 Mg/ 24hr) 1 patch DAILY TRANSDERM Last administered on 08:39; Admin Dose 1 PATCH; Start 12/30/16 at 12:30 Aripiprazole (Abilify) 2 mg DAILY PO Last administered on 01/07/17 08:31; Admin Dose 2 MG; Start 01/04/17 at 09:00 Methylprednisolone Sodium Succinate 100 mg 100 mg Q12 IV Last administered on 01/07/17 08:30; Admin Dose 100 MG; Start 01/04/17 at 21:00 Immune Globulin/ Sterile Water (Carimune Nf/ Water Sterile For Inj) 1,000 ml @ 0 mls/hr Q24H IV Last administered on 01/07/17 11:37; Admin Dose 0 MLS/HR; Start 01/07/17 at 09:00; Stop 01/08/17 at 09:01 BENJAMIN STOUT MD 01/07/17 1459: Assessment/Plan Assessment/Plan Assessment/Plan Plt count up to 78, 3rd dose of IVIG tmw Likley dc tmw per Heme after IVIG on po steroids Exam/Review of Systems Results Result Diagram: 01/07/17 0432 01/07/17 0432 SABRINA RONDON Jan 07, 2017 12:18 BENJAMIN STOUT MD Jan 07, 2017 14:59
[2017-01-07 17:44] VITALS: BP 129/65; RESP 20
[2017-01-07 20:19] VITALS: BP 134/72; RESP 19
[2017-01-08 02:31] VITALS: BP 129/68; RESP 19
[2017-01-08 05:04] LABS: BASOPHILS % 0.1 % (0.0-2.0); HEMATOCRIT 42.1 % (42.0-52.0); HEMOGLOBIN 14.8 g/dl (14.0-18.0); LYMPHOCYTES # 1.1 10^3/ul (0.8-2.9); LYMPHOCYTES % 13.3 % (15.0-51.0); MEAN CORPUSCULAR HGB CONC 35.2 g/dl (32.0-37.0); MEAN CORPUSCULAR VOLUME 82.4 fl (82.0-101.0); MEAN PLATELET VOLUME 11.2 fl (7.4-10.4); MONOCYTE # 0.4 10^3/ul (0.3-0.9); MONOCYTES % 4.3 % (0.0-11.0); NEUTROPHIL # 6.7 10^3/ul (1.6-7.5); NEUTROPHILS % 80.4 % (39.0-77.0); PLATELET COUNT 116 10^3/UL (140-415); RED BLOOD COUNT 5.11 10^6/ul (4.70-6.10); RED CELL DISTRIBUTION WIDTH 12.5 % (11.5-14.5); WHITE BLOOD COUNT 8.3 10^3/ul (4.8-10.8)
[2017-01-08 07:39] VITALS: BP 121/76; RESP 20
[2017-01-08] MEDS: NICOTINE (21 MG/24 HR) PATCH TRANSDERM SCH (08:40)
[2017-01-08] MEDS: FOLIC ACID 1 MG TAB PO SCH (09:18)
[2017-01-08] MEDS: ARIPIPRAZOLE 2 MG TAB PO SCH (09:18)
[2017-01-08] MEDS: FAMOTIDINE 20 MG TAB PO SCH (09:18)
[2017-01-08] MEDS: METHYLPREDNISOLONE 125 MG INJ IV SCH ×2 (09:18→20:40)
[2017-01-08] MEDS: DRONABINOL 2.5 MG CAP PO SCH (09:18)
[2017-01-08] MEDS: WATER STERILE FOR IV SCH (10:48)
[2017-01-08] MEDS: IMMUNE GLOBULIN IV SCH (10:48)
--- NOTE | 2017-01-08 13:14 | CONS ---
Date/Time of Note Date/Time of Note DATE: 01/08/17 TIME: 13:12 Assessment/Plan Assessment/Plan Chief Complaint/Hosp Course ITP- WITH SEVERE THROMBOCYTOPENIA history of ITP SMEAR- C/W ITP CONT TO MONITOR LDH, RETIC, FRACTIONATED BILI IMPROVED ON STEROIDS AND IVIG OK TO DC POST IVIG COMPETED MICROCYTOSIS IRON STUDIES- NOTED depression methamphetamine abuse. Problems: Consultation Date/Type/Reason Admit Date/Time Dec 28, 2016 at 15:01 Initial Consult Date 12/28/16 [facility] Referring Provider: KAM URENA MD 24 HR Interval Summary Free Text/Dictation improved on IVIG Exam/Review of Systems Vital Signs Vitals Vital Signs Date Time Temp Pulse Resp B/P Pulse Ox O2 Delivery O2 Flow Rate FiO2 01/08/17 07:39 97.8 65 20 121/76 99 01/06/17 19:25 Room Air Intake and Output 01/07/17 01/07/17 01/08/17 15:00 23:00 07:00 Intake Total 2200 ml 1000 ml Output Total 1500 ml Balance 2200 ml -500 ml Exam Const: NAD Head: Atraumatic Eyes: Normal Conjunctiva ENT: Normal External Ears, Nose and Mouth. Neck: Full range of motion..~ No meningismus. Resp: Clear to auscultation bilaterally Cardio: Regular rate and rhythm, no murmurs Abd: Soft, non tender, non distended. Normal bowel sounds Skin: No petechiae or rashes Back: No midline or flank tenderness Ext: No cyanosis, or edema Neur: Awake and depressed Psych: Depressed with suicidal ideation without plan Results Result Diagram: 01/08/17 0440 01/07/17 0432 Results 24 hrs Laboratory Tests Test 01/08/17 04:40 White Blood Count 8.3 Red Blood Count 5.11 Hemoglobin 14.8 Hematocrit 42.1 Mean Corpuscular Volume 82.4 Mean Corpuscular Hemoglobin 29.0 Mean Corpuscular Hemoglobin Concent 35.2 Red Cell Distribution Width 12.5 Platelet Count 116 #L Mean Platelet Volume 11.2 H Neutrophils % 80.4 H Lymphocytes % 13.3 L Monocytes % 4.3 Eosinophils % 0.0 Basophils % 0.1 Nucleated Red Blood Cells % 0.0 Neutrophils # 6.7 Lymphocytes # 1.1 Monocytes # 0.4 Eosinophils # 0.0 Basophils # 0.0 Nucleated Red Blood Cells # 0.0 Medications Medications Current Medications Ondansetron HCl (Zofran Inj) 4 mg Q6H PRN IV NAUSEA AND/OR VOMITING; Start at 16:30 Metoclopramide HCl (Reglan) 10 mg Q6H PRN IV NAUSEA AND/OR VOMITING; Start at 16:30 Acetaminophen (Tylenol Tab) 650 mg Q6H PRN PO PAIN LEVEL 1-3 OR FEVER Last administered on 12/31/16 16:40; Admin Dose 650 MG; Start 12/28/16 at 16:30 Ibuprofen (Motrin) 600 mg Q6H PRN PO PAIN LEVEL 1-3; Start 12/28/16 at 16:30 Acetaminophen/ Hydrocodone Bitart ([place] (5/325)) 1 tab Q6H PRN PO MODERATE PAIN LEVEL 4-6; Start 12/28/16 at 16:30 Morphine Sulfate (morphine) 2 mg Q4H PRN IV SEVERE PAIN LEVEL 7-10; Start at 16:30 Docusate Sodium (Colace) 100 mg Q12H PRN PO CONSTIPATION; Start 12/28/16 at 16 :30 Famotidine (Pepcid) 20 mg DAILY PO Last administered on 01/08/17 09:18; Admin Dose 20 MG; Start 12/29/16 at 09:00 Lorazepam (Ativan) 1 mg Q4 PRN IV agitation; Start 12/28/16 at 16:30 Miscellaneous Information 1 ea NOTE XX ; Start 12/28/16 at 17:00 Glucose (Glutose) 15 gm Q15M PRN PO DECREASED GLUCOSE; Start 12/28/16 at 17:00 Glucose (Glutose) 22.5 gm Q15M PRN PO DECREASED GLUCOSE; Start 12/28/16 at 17: 00 Dextrose (D50w Syringe) 50 ml Q15M PRN IV DECREASED GLUCOSE; Start 12/28/16 at 17:00 Glucagon (Glucagen) 1 mg Q15M PRN IM DECREASED GLUCOSE; Start 12/28/16 at 17: 00 Glucose (Glutose) 15 gm Q15M PRN BUCCAL DECREASED GLUCOSE; Start 12/28/16 at 17:00 Folic Acid (Folic Acid) 1 mg DAILY PO Last administered on 01/08/17 09:18; Admin Dose 1 MG; Start 12/29/16 at 09:00 Dronabinol (Marinol) 2.5 mg DAILY PO Last administered on 01/08/17 09:18; Admin Dose 2.5 MG; Start 12/30/16 at 12:30 Nicotine (Nicoderm 21 Mg/ 24hr) 1 patch DAILY TRANSDERM Last administered on 08:39; Admin Dose 1 PATCH; Start 12/30/16 at 12:30 Aripiprazole (Abilify) 2 mg DAILY PO Last administered on 01/08/17 09:18; Admin Dose 2 MG; Start 01/04/17 at 09:00 Methylprednisolone Sodium Succinate (Solu-Medrol) 100 mg Q12 IV Last administered on 01/08/17 09:18; Admin Dose 100 MG; Start 01/04/17 at 21:00 SCAR FSICHER MD Jan 08, 2017 13:14
[2017-01-08 20:22] VITALS: BP 132/81; RESP 19
--- NOTE | 2017-01-08 20:23 | PN ---
Date/Time of Note Date/Time of Note DATE: 01/08/17 TIME: 20:22 Assessment/Plan VTE Prophylaxis VTE Prophylaxis Intervention: other Lines/Catheters IV [facility] Type [facility]from [facility] Saline Lock Urinary Cath still in place: No Assessment/Plan Chief Complaint/Hosp Course 1. Severe thrombocytopenia with a history of idiopathic thrombocytopenic purpura, . pt is ON IV immunoglobulin, and prednisone 2. hx of Depression with suicidal ideation, . 3. Marijuana and amphetamine use with hallucinations.hx 4. Homelessness. 5. Smoker. plan per hematology Problems: Subjective 24 Hr Interval Summary Respiratory: no complaints Cardiovascular: no complaints Gastrointestinal: no complaints Exam/Review of Systems Vital Signs Vitals Vital Signs Date Time Temp Pulse Resp B/P Pulse Ox O2 Delivery O2 Flow Rate FiO2 01/08/17 07:39 97.8 65 20 121/76 99 01/06/17 19:25 Room Air Intake and Output 01/07/17 01/07/17 01/08/17 15:00 23:00 07:00 Intake Total 2200 ml 1000 ml Output Total 1500 ml Balance 2200 ml -500 ml Exam Neck: supple Respiratory: clear to auscultation Cardiovascular: regular rate and rhythm Gastrointestinal: bowel sounds (+), soft Extremities: normal pulses Results Result Diagram: 01/08/17 0440 01/07/17 0432 Results 24 hrs Laboratory Tests Test 01/08/17 04:40 White Blood Count 8.3 Red Blood Count 5.11 Hemoglobin 14.8 Hematocrit 42.1 Mean Corpuscular Volume 82.4 Mean Corpuscular Hemoglobin 29.0 Mean Corpuscular Hemoglobin Concent 35.2 Red Cell Distribution Width 12.5 Platelet Count 116 #L Mean Platelet Volume 11.2 H Neutrophils % 80.4 H Lymphocytes % 13.3 L Monocytes % 4.3 Eosinophils % 0.0 Basophils % 0.1 Nucleated Red Blood Cells % 0.0 Neutrophils # 6.7 Lymphocytes # 1.1 Monocytes # 0.4 Eosinophils # 0.0 Basophils # 0.0 Nucleated Red Blood Cells # 0.0 Medications Medications Current Medications Ondansetron HCl (Zofran Inj) 4 mg Q6H PRN IV NAUSEA AND/OR VOMITING; Start at 16:30 Metoclopramide HCl (Reglan) 10 mg Q6H PRN IV NAUSEA AND/OR VOMITING; Start at 16:30 Acetaminophen (Tylenol Tab) 650 mg Q6H PRN PO PAIN LEVEL 1-3 OR FEVER Last administered on 12/31/16 16:40; Admin Dose 650 MG; Start 12/28/16 at 16:30 Ibuprofen (Motrin) 600 mg Q6H PRN PO PAIN LEVEL 1-3; Start 12/28/16 at 16:30 Acetaminophen/ Hydrocodone Bitart ([place] (5/325)) 1 tab Q6H PRN PO MODERATE PAIN LEVEL 4-6; Start 12/28/16 at 16:30 Morphine Sulfate (morphine) 2 mg Q4H PRN IV SEVERE PAIN LEVEL 7-10; Start at 16:30 Docusate Sodium (Colace) 100 mg Q12H PRN PO CONSTIPATION; Start 12/28/16 at 16 :30 Famotidine (Pepcid) 20 mg DAILY PO Last administered on 01/08/17 09:18; Admin Dose 20 MG; Start 12/29/16 at 09:00 Lorazepam (Ativan) 1 mg Q4 PRN IV agitation; Start 12/28/16 at 16:30 Miscellaneous Information 1 ea NOTE XX ; Start 12/28/16 at 17:00 Glucose (Glutose) 15 gm Q15M PRN PO DECREASED GLUCOSE; Start 12/28/16 at 17:00 Glucose (Glutose) 22.5 gm Q15M PRN PO DECREASED GLUCOSE; Start 12/28/16 at 17: 00 Dextrose (D50w Syringe) 50 ml Q15M PRN IV DECREASED GLUCOSE; Start 12/28/16 at 17:00 Glucagon (Glucagen) 1 mg Q15M PRN IM DECREASED GLUCOSE; Start 12/28/16 at 17: 00 Glucose (Glutose) 15 gm Q15M PRN BUCCAL DECREASED GLUCOSE; Start 12/28/16 at 17:00 Folic Acid (Folic Acid) 1 mg DAILY PO Last administered on 01/08/17 09:18; Admin Dose 1 MG; Start 12/29/16 at 09:00 Dronabinol (Marinol) 2.5 mg DAILY PO Last administered on 01/08/17 09:18; Admin Dose 2.5 MG; Start 12/30/16 at 12:30 Nicotine (Nicoderm 21 Mg/ 24hr) 1 patch DAILY TRANSDERM Last administered on 08:39; Admin Dose 1 PATCH; Start 12/30/16 at 12:30 Aripiprazole (Abilify) 2 mg DAILY PO Last administered on 01/08/17 09:18; Admin Dose 2 MG; Start 01/04/17 at 09:00 Methylprednisolone Sodium Succinate (Solu-Medrol) 100 mg Q12 IV Last administered on 01/08/17 09:18; Admin Dose 100 MG; Start 01/04/17 at 21:00 DIMITRIS APPIAH MD Jan 08, 2017 20:23
[2017-01-09 03:00] VITALS: BP 129/72; RESP 19
[2017-01-09 05:52] LABS: BASOPHILS % 0.2 % (0.0-2.0); HEMATOCRIT 40.6 % (42.0-52.0); HEMOGLOBIN 14.3 g/dl (14.0-18.0); LYMPHOCYTES # 1.1 10^3/ul (0.8-2.9); LYMPHOCYTES % 9.4 % (15.0-51.0); MEAN CORPUSCULAR HEMOGLOBIN 29.1 pg (29.0-33.0); MEAN CORPUSCULAR HGB CONC 35.2 g/dl (32.0-37.0); MEAN CORPUSCULAR VOLUME 82.5 fl (82.0-101.0); MEAN PLATELET VOLUME 10.8 fl (7.4-10.4); MONOCYTE # 0.5 10^3/ul (0.3-0.9); MONOCYTES % 3.9 % (0.0-11.0); NEUTROPHIL # 9.8 10^3/ul (1.6-7.5); NEUTROPHILS % 84.9 % (39.0-77.0); PLATELET COUNT 177 10^3/UL (140-415); RED BLOOD COUNT 4.92 10^6/ul (4.70-6.10); RED CELL DISTRIBUTION WIDTH 12.4 % (11.5-14.5); WHITE BLOOD COUNT 11.5 10^3/ul (4.8-10.8)
[2017-01-09 07:50] VITALS: BP 117/68; RESP 20
[2017-01-09] MEDS: FAMOTIDINE 20 MG TAB PO SCH (08:31)
[2017-01-09] MEDS: FOLIC ACID 1 MG TAB PO SCH (08:31)
[2017-01-09] MEDS: ARIPIPRAZOLE 2 MG TAB PO SCH (08:31)
[2017-01-09] MEDS: DRONABINOL 2.5 MG CAP PO SCH (08:31)
[2017-01-09] MEDS: NICOTINE (21 MG/24 HR) PATCH TRANSDERM SCH (08:32)
[2017-01-09] MEDS: METHYLPREDNISOLONE 125 MG INJ IV SCH (08:32)
--- NOTE | 2017-01-09 15:26 | PDOCDIS ---
Discharge Instructions DIAGNOSIS Discharge Diagnosis Thrombocytopenia, Substance abuse, depression CONDITION Patient Condition: Stable HOME CARE INSTRUCTIONS: Diet Instructions: RegularSpecial Diet: REGULAR ACTIVITY: Activity Restrictions: Slowly Increase Activity Rest between Activity Avoid heavy lifting Avoid Heavy Housework Bathing Restrictions: Shower FOLLOW UP/APPOINTMENTS Follow-up Plan [facility] 1 wk og 1 wk doni qwk by pcp DIMITRIS APPIAH MD Jan 09, 2017 15:26
[2017-01-09] MEDS ORDERED: ARIP2TAB8 PO (15:30)
[2017-01-09] MEDS ORDERED: FOLI-49 PO (15:30)
[2017-01-09] MEDS ORDERED: NICO1PAT6 TRANSDERM (15:30)
[2017-01-09] MEDS ORDERED: FAMO20TA18 PO (15:30)
[2017-01-09] MEDS ORDERED: PRED5TAB PO (15:30)
[2017-01-09] MEDS ORDERED: DRON2.5C PO (15:30)
--- NOTE | 2017-01-09 19:37 | CONS ---
Date/Time of Note Date/Time of Note DATE: 01/09/17 TIME: 11:37 vk le Assessment/Plan Assessment/Plan Chief Complaint/Hosp Course ITP- WITH SEVERE THROMBOCYTOPENIA history of ITP SMEAR- C/W ITP CONT TO MONITOR LDH, RETIC, FRACTIONATED BILI IMPROVED ON STEROIDS AND IVIG OK TO DC POST IVIG COMPETED MICROCYTOSIS IRON STUDIES- NOTED depression methamphetamine abuse. Problems: Consultation Date/Type/Reason Admit Date/Time Dec 28, 2016 at 15:01 Initial Consult Date 12/28/16 Type of Consultation: [facility] Referring Provider: KAM URENA MD 24 HR Interval Summary Free Text/Dictation IMPROVING Exam/Review of Systems Vital Signs Vitals Vital Signs Date Time Temp Pulse Resp B/P Pulse Ox O2 Delivery O2 Flow Rate FiO2 01/09/17 07:50 97.4 65 20 117/68 98 01/06/17 19:25 Room Air Intake and Output 01/08/17 01/08/17 01/09/17 15:00 23:00 07:00 Intake Total 1360 ml 1000 ml Balance 1360 ml 1000 ml Exam Const: NAD Head: Atraumatic Eyes: Normal Conjunctiva ENT: Normal External Ears, Nose and Mouth. Neck: Full range of motion..~ No meningismus. Resp: Clear to auscultation bilaterally Cardio: Regular rate and rhythm, no murmurs Abd: Soft, non tender, non distended. Normal bowel sounds Skin: No petechiae or rashes Back: No midline or flank tenderness Ext: No cyanosis, or edema Neur: Awake and depressed Psych: Depressed with suicidal ideation without plan Results Result Diagram: 01/09/17 0441 01/07/17 0432 Results 24 hrs Laboratory Tests Test 01/09/17 04:41 White Blood Count 11.5 #H Red Blood Count 4.92 Hemoglobin 14.3 Hematocrit 40.6 L Mean Corpuscular Volume 82.5 Mean Corpuscular Hemoglobin 29.1 Mean Corpuscular Hemoglobin Concent 35.2 Red Cell Distribution Width 12.4 Platelet Count 177 # Mean Platelet Volume 10.8 H Neutrophils % 84.9 H Lymphocytes % 9.4 L Monocytes % 3.9 Eosinophils % 0.0 Basophils % 0.2 Nucleated Red Blood Cells % 0.0 Neutrophils # 9.8 H Lymphocytes # 1.1 Monocytes # 0.5 Eosinophils # 0.0 Basophils # 0.0 Nucleated Red Blood Cells # 0.0 SCAR FISCHER MD Jan 09, 2017 19:37
--- NOTE | 2017-01-11 10:09 | QN ---
Documentation Comment [id number] DIMITRIS APPIAH MD Jan 11, 2017 10:09
--- NOTE | 2017-01-11 12:50 | DS ---
DATE OF ADMISSION: 12/28/2016 DATE OF DISCHARGE: 01/09/2017 The patient was admitted with history of drug abuse, history of thrombocytopenia. The patient presented with severe thrombocytopenia with history of ITP (idiopathic thrombocytopenia purpura). The patient has history of noncompliance. The patient has history of depression with suicidal ideation , history of marijuana, amphetamine use with hallucinations and patient is also homeless. The patient was seen by Dr. Ambriz, received platelet transfusion. Dr. Ambriz's impression is thrombocytopenia, history of ITP, microcytosis and patient was followed very closely. Started on , steroid. The patient laboratory data done shows HIV is negative. Urine toxicology positive for . The patient's latest labs recorded as potassium 4.2. The patient's latest labs shows patient's thrombocytopenia as improving. The patient's WBC 11.5, platelet count of 177. The patient was cleared by Dr. Ambriz to be discharged home. The patient also was seen by he patient is psychiatrically stable. DISCHARGE DIAGNOSES: Include: 1. Idiopathic thrombocytopenic purpura. 2. Thrombocytopenia. 3. Drug abuse. 4. Marijuana abuse. 5. Homelessness. 6. The patient had platelet transfusion. DISCHARGE MEDICATIONS: To continue on: 1. Abilify. 2. prednisone. 3. Famotidine. 4. Folic acid. 5. Nicotine patch. 6. Prednisone tapering dose. The patient to follow with primary care physician and Dr. Ambriz as an outpatient. Dictated By: DIMITRIS KING/GUSTAVO Conf#: [id number] DID#: [id number] LUIS ANGEL
== END 2017-01-09 17:20 | disposition home or self-care (01) | DRG 813 ==
LOC: E/R 12:29 → MS1 15:01 → EDBD 15:01
PROVIDERS: ADMIT Internal Medicine; ATTEND Internal Medicine
PROC: 30233R1 Transfusion of Nonautologous Platelets into Peripheral Vein, Percutaneous Approach (ICD-10-PCS; principal; 2016-12-30)
DX: D69.6 Thrombocytopenia, unspecified (principal); R45.851 Suicidal ideations; D69.3 Immune thrombocytopenic purpura; F32.9 Major depressive disorder, single episode, unspecified; Z59.0 Homelessness; F12.10 Cannabis abuse, uncomplicated; Z91.19 Patient's noncompliance with other medical treatment and regimen; Z72.0 Tobacco use; F15.959 Other stimulant use, unspecified with stimulant-induced psychotic disorder, unspecified
CPT/HCPCS: 36415; 36430; 80048; 80053; 80306; 80307; 81001; 82962; 83010; 83036; 83735; 84100; 85025; 85045; 86644; 86703; 86850; 86900; 86901; 86945; 90686; 96374; J1566; J1940; J1200; J1815; J2930; J3411; J7030; J7512; P9035

== ENCOUNTER 2018-09-29 07:44 | Inpatient (IN) | payer OTHER ==
[~2018-09-29] VITALS: Ht 165.1 cm; Wt 79.9 kg
[~2018-09-29 07:44] MED LIST: ARIP2TAB17 PO; DRON2.5C PO; FAMO20TA18 PO; FOLI-49 PO; NICO-546 TRANSDERM; PRED5TAB PO
[2018-09-29] MEDS ORDERED: METHYLPREDNISOLONE 125 MG INJ IV ONE (12:00)
[2018-09-29] MEDS ORDERED: ACETAMINOPHEN 325 MG TAB PO PRN ×3 (14:00→18:00)
[2018-09-29] MEDS ORDERED: ONDANSETRON 4 MG INJ IV PRN ×2 (14:00→18:00)
[2018-09-29 14:50] VITALS: BP 126/62; PULSE 77; RESP 16
[2018-09-29 16:09] VITALS: Ht 165.1 cm; Wt 79.9 kg
[2018-09-29] MEDS ORDERED: POTASSIUM CHLORIDE (SR) 10 MEQ TAB PO ONE (16:30)
[2018-09-29] MEDS ORDERED: ZOLPIDEM 5 MG TAB PO PRN (18:00)
[2018-09-29] MEDS ORDERED: NACL 0.9% 3 ML SYG IV SCH (18:00)
[2018-09-29] MEDS ORDERED: DOCUSATE SODIUM 100 MG CAP PO PRN (18:00)
[2018-09-29] MEDS ORDERED: BISACODYL (EC) 5 MG TAB PO PRN (18:00)
[2018-09-29] MEDS ORDERED: LORAZEPAM 1 MG TAB PO PRN (18:00)
[2018-09-29] MEDS ORDERED: MAGNESIUM HYDROXIDE 30ML CUP PO PRN (18:00)
[2018-09-29] MEDS: MULTIVITAMINS 10 ML, THIAMINE 100 MG, FOLIC ACID 1 MG in SOD CHLORIDE 0.9% 1,000 ML IVPB SCH (18:56)
[2018-09-29 20:00] VITALS: BP 112/62; PULSE 74; RESP 18
[2018-09-30] MEDS: METHYLPREDNISOLONE 125 MG INJ IV SCH ×4 (00:05→21:41)
[2018-09-30 02:00] VITALS: BP 110/64; PULSE 56; RESP 18
[2018-09-30] MEDS ORDERED: PANTOPRAZOLE 40 MG INJ IV SCH (06:00)
[2018-09-30 08:01] VITALS: BP 114/56; PULSE 54; RESP 20
[2018-09-30] MEDS ORDERED: METHYLPREDNISOLONE 125 MG INJ IV SCH (09:00)
[2018-09-30 16:41] VITALS: BP 113/59; PULSE 71; RESP 18
[2018-09-30] MEDS: MULTIVITAMINS 10 ML, THIAMINE 100 MG, FOLIC ACID 1 MG in SOD CHLORIDE 0.9% 1,000 ML IVPB SCH (17:54)
[2018-09-30 20:25] VITALS: BP 120/78; PULSE 64; RESP 17
[2018-10-01 01:43] VITALS: BP 128/59; PULSE 59; RESP 18
[2018-10-01] MEDS: PANTOPRAZOLE (EC) 40 MG TAB PO SCH (06:25)
[2018-10-01 07:55] VITALS: BP 115/64; PULSE 60; RESP 18
[2018-10-01] MEDS: METHYLPREDNISOLONE 125 MG INJ IV SCH ×3 (08:36→20:34)
[2018-10-01 14:35] VITALS: BP 120/63; PULSE 90; RESP 18
[2018-10-01] MEDS: MULTIVITAMINS 10 ML, THIAMINE 100 MG, FOLIC ACID 1 MG in SOD CHLORIDE 0.9% 1,000 ML IVPB SCH (18:00)
[2018-10-01 20:30] VITALS: BP 123/69; PULSE 73; RESP 17
[2018-10-02 02:08] VITALS: BP 126/61; PULSE 64; RESP 16
[2018-10-02] MEDS: PANTOPRAZOLE (EC) 40 MG TAB PO SCH (05:35)
[2018-10-02 07:59] VITALS: BP 106/58; PULSE 51; RESP 18
[2018-10-02] MEDS: METHYLPREDNISOLONE 125 MG INJ IV SCH (09:23)
[2018-10-02 14:34] VITALS: BP 119/55; PULSE 71; RESP 18
[2018-10-02 14:35] VITALS: BP 108/66; PULSE 98; RESP 25
== END 2018-10-02 16:00 | disposition home or self-care (01) | DRG 813 ==
LOC: E/R 07:44 → 2NE 13:36
PROVIDERS: ADMIT Internal Medicine Nephrology; ATTEND Internal Medicine Nephrology
PROC: 30233R1 Transfusion of Nonautologous Platelets into Peripheral Vein, Percutaneous Approach (ICD-10-PCS; principal; 2018-09-29)
DX: D69.3 Immune thrombocytopenic purpura (principal); Z94.81 Bone marrow transplant status; F32.9 Major depressive disorder, single episode, unspecified; F41.9 Anxiety disorder, unspecified; F15.90 Other stimulant use, unspecified, uncomplicated; F17.200 Nicotine dependence, unspecified, uncomplicated; E87.6 Hypokalemia; D69.59 Other secondary thrombocytopenia; Z91.14 Patient's other noncompliance with medication regimen; F10.10 Alcohol abuse, uncomplicated
CPT/HCPCS: 36430; 80048; 80053; 85025; 85610; 85730; 86850; 86900; 86901; 93005; 96374; C9113; J2930; J3411; J7030; P9035

== ENCOUNTER 2018-12-12 12:39 | Inpatient (IN) | payer OTHER ==
[~2018-12-12] VITALS: Ht 165.1 cm; Wt 83.7 kg
[~2018-12-12 12:39] MED LIST changes: -ARIP2TAB17 PO; +DEC4 PO; -DRON2.5C PO; +ELTR50TA PO; -FOLI-49 PO; -NICO-546 TRANSDERM; +PRED10TA PO; +PRED20TA PO; +PRED50TA PO; -PRED5TAB PO
[2018-12-12] MEDS ORDERED: SOD CHLORIDE 0.9% 0 ML IV ONE (14:25)
[2018-12-12] MEDS ORDERED: METHYLPREDNISOLONE 125 MG INJ IV ONE (14:30)
[2018-12-12] MEDS ORDERED: ONDANSETRON 4 MG INJ IV PRN ×2 (15:00→17:00)
[2018-12-12] MEDS ORDERED: ACETAMINOPHEN 325 MG TAB PO PRN ×2 (15:00→17:00)
[2018-12-12] MEDS ORDERED: IMMUNE GLOBULIN (GAMUNEX-C) 10 GM/100 ML IV ONE ×2 (15:00→16:00)
[2018-12-12] MEDS ORDERED: DEXAMETHASONE 4 MG TAB PO ONE ×2 (16:00)
[2018-12-12] MEDS: IMMUNE GLOBULIN IV SCH ×2 (16:17→19:34)
[2018-12-12] MEDS ORDERED: MAGNESIUM HYDROXIDE 30ML CUP PO PRN (17:00)
[2018-12-12] MEDS ORDERED: NACL 0.9% 3 ML SYG IV SCH (17:00)
[2018-12-12 21:57] VITALS: BP 117/60; PULSE 71; RESP 18
[2018-12-12 21:58] VITALS: Ht 165.1 cm; Wt 83.7 kg
[2018-12-13] VITALS: BP 110/58; PULSE 66; RESP 18
[2018-12-13] MEDS: IMMUNE GLOBULIN (IVIG) 200 ML IVPB SCH ×3 (01:01→09:12)
[2018-12-13 04:00] VITALS: BP 110/61; PULSE 56; RESP 18
[2018-12-13] MEDS: PANTOPRAZOLE (EC) 40 MG TAB PO SCH (07:26)
[2018-12-13 07:42] VITALS: BP 111/71; PULSE 80; RESP 16
[2018-12-13] MEDS: DEXAMETHASONE 4 MG TAB PO SCH (09:05)
[2018-12-13 12:20] VITALS: BP 118/60; PULSE 69; RESP 15
[2018-12-13 15:10] VITALS: BP 116/58; PULSE 73; RESP 16
[2018-12-13 19:17] VITALS: BP 127/72; PULSE 80; RESP 16
[2018-12-14] VITALS: BP 117/56; PULSE 69; RESP 18
[2018-12-14 04:00] VITALS: BP 109/60; PULSE 62; RESP 18
[2018-12-14] MEDS: PANTOPRAZOLE (EC) 40 MG TAB PO SCH (05:55)
[2018-12-14 07:20] VITALS: BP 123/66; PULSE 60; RESP 16
[2018-12-14] MEDS: DEXAMETHASONE 4 MG TAB PO SCH (09:00)
[2018-12-14] MEDS ORDERED: FLU VACC QS 2019-20 (6MOS UP) 0.5 ML SYG IM* ONE (10:00)
[2018-12-14 11:56] VITALS: BP 107/54; PULSE 58; RESP 18
== END 2018-12-14 15:00 | disposition home or self-care (01) | DRG 813 ==
LOC: E/R 12:39 → TEL 14:49
PROVIDERS: ADMIT Internal Medicine; ATTEND Internal Medicine
PROC: 30233R1 Transfusion of Nonautologous Platelets into Peripheral Vein, Percutaneous Approach (ICD-10-PCS; principal; 2018-12-12)
PROC: 30233S1 Transfusion of Nonautologous Globulin into Peripheral Vein, Percutaneous Approach (ICD-10-PCS; 2018-12-12)
PROC: 3E0234Z Introduction of Serum, Toxoid and Vaccine into Muscle, Percutaneous Approach (ICD-10-PCS; 2018-12-14)
DX: D69.3 Immune thrombocytopenic purpura (principal); Z79.52 Long term (current) use of systemic steroids; Z23 Encounter for immunization
CPT/HCPCS: 36430; 80048; 85025; 86850; 86900; 86901; 90686; J1561; J2930; J7040; P9035